=== PATIENT | male | born 1950 | race Caucasian/White ===

== ENCOUNTER 2018-05-24 15:40 | Inpatient (IN) ==
--- NOTE | 2018-05-24 18:08 | ED ---
HPI General Chief complaint: Urogenital-Male Stated complaint: Patient states urinary complaint Time Seen by Provider: 05/24/18 17:48 Source: patient Mode of arrival: ambulatory Limitations: no limitations History of Present Illness HPI Narrative: 68-year-old male with history of CAD status post CABG, hypertension, TIA presents to the emergency department with his daughter with concerns of a Dinh catheter bag but has not been draining today. His daughter states that there has been pus in the area of the catheter as well associated with pain. Daughter states that patient is due to go to the [facility] to see a physician but does not know why. They state that Was placed 3 months ago but does not know why. A quick review of the notes show the patient has an enlarged prostate and this was placed by Dr. Hoyos, urologist. Patient reports pain in his lower pelvic region that has worsened throughout the day. He denies fever, chills, chest pain, shortness of breath. Patient had a bowel movement today which was normal for him. MD Complaint: Reports penile discharge Duration: constant Location: Reports penis Severity: moderate Relieving factors: none Exacerbating factors: palpation and movement Reports discharge and urinary retention Related Data Home Medications Medication Instructions Recorded Confirmed aspirin 81 mg PO DAILY 05/24/18 05/24/18 atorvastatin 20 mg PO DAILY 05/24/18 05/24/18 furosemide 20 mg PO DAILY 05/24/18 05/24/18 lisinopril 10 mg PO DAILY 05/24/18 05/24/18 Allergies Allergy/AdvReac Type Severity Reaction Status Date / Time No Known Allergies Allergy Verified 05/24/18 16:21 Review of Systems ROS: all other systems reviewed are negative PMFSH History History Provided By: Patient and Family Member Family History Family History Other Family history normal Social History Social History Substance History: No History of Abuse Second Hand Smoke Exposure: Yes Smoking Status: Former smoker Tobacco Type: Cigarettes How Often Do You Have a Drink Containing Alcohol: Never Recent Travel in [place] within the Last 8 Weeks: No Recent Out of Country Travel within the Last 8 Weeks: No Exam Narrative Exam Narrative: GENERAL: Well-developed, well-nourished in no apparent distress , very hard of hearing SKIN: Focused skin assessment warm/dry. HEAD: Atraumatic. Normocephalic. EYES: Pupils equal and round. No scleral icterus. No injection or drainage. ENT: No nasal bleeding or discharge. Mucous membranes pink and moist. NECK: Trachea midline. No JVD. CARDIOVASCULAR: Regular rate and rhythm. No murmur appreciated. RESPIRATORY: No accessory muscle use. Clear to auscultation. Breath sounds equal bilaterally. GASTROINTESTINAL: Abdomen soft, non-tender, nondistended. Hepatic and splenic margins not palpable. enlargement of likely bladder with TTP to the umbilical region. No CVAT MUSCULOSKELETAL: No obvious deformities. No clubbing. No cyanosis. No edema. NEUROLOGICAL: Awake and alert. No obvious cranial nerve deficits. Motor grossly within normal limits. Normal speech. PSYCHIATRIC: Appropriate mood and affect; insight and judgment normal. Course Initial Documented Vital Signs Temperature 97.7 F 05/24/18 16:14 Pulse Rate 60 05/24/18 16:14 Respiratory Rate 15 05/24/18 16:14 Blood Pressure 173/76 H 05/24/18 16:14 Pulse Oximetry 94 L 05/24/18 16:14 Last Documented Vital Signs Temperature 97.5 F L 05/25/18 08:00 Pulse Rate 69 05/25/18 08:00 Respiratory Rate 18 05/25/18 08:00 Blood Pressure 137/58 L 05/25/18 08:00 Pulse Oximetry 96 05/25/18 08:00 Discharge Plan Discharge Disposition Patient Disposition: 30 Still Patient Discharge Condition Condition: Stable Discharge Details Diagnosis: Acute UTI, Acute retention of urine, Sepsis Physicians Team ED Provider: Brant Lopez ED Midlevel Provider: Shannon Luo Primary Care Provider: NON STAFF,PROVIDER Attending Provider: Kasey Lemus Status ED Status: Left Department Discharge Information Discharge Date/Time: 05/25/18 08:00 Medical Decision Making [facility] Narrative Medical decision making narrative: 68y male with a history of BPH presents to the ED for concerns of lack of draining of his dinh bag. Says this was placed 3 months ago and is due to follow up with a specialist at [facility]. He was previous seen by Dr. Hoyos who placed this catheter. Vital signs are stable. Physical exam findings demonstrate mild TTP to lower abdomen/pelvis with no drainage of urine in dinh bag. Labs are concerning for developing sepsis. Lactic 3.9, WBC 17.9, BUN/Cr 33/1.58. Attempted to flush the catheter but unsuccessful. Required a coude to flush, irrigate, and obtain a urine sample. I was notified that the urine was malodorous and cloudy, concerning for an infection. Initiated cefepime 2g IV. IVF with held initially as it took an extended period of time to drain the dinh bag. Ordered 1L NS IVF. Previous records are from 2014 and no labs were available for review to determine chronicity of kidney function. Pt to be admitted for urosepsis. Medical Screen Exam Complete: Yes Emergency Medical Condition: Yes Differential Diagnosis Differential Diagnosis: sepsis, urosepsis, urinary obstruction Lab Data Result diagrams: 05/24/18 18:10 05/24/18 18:10 Lab Results 05/24/18 05/24/18 05/24/18 Range/Units 00:00 00:00 18:10 WBC 17.9 H (4.0-11.0) th/mm3 RBC 4.86 (4.50-5.90) mil/mm3 Hgb 15.8 (13.0-17.0) gm/dL Hct 45.7 (39.0-51.0) % MCV 94.0 (80.0-100.0) fL MCH 32.6 (27.0-34.0) pg MCHC 34.6 (32.0-36.0) % RDW 14.5 (11.6-17.2) % Plt Count 253 (150-450) th/mm3 MPV 9.3 (7.0-11.0) fL Neut % (Auto) 89.3 H (16.0-70.0) % Lymph % (Auto) 3.3 L (9.0-44.0) % Stewart % (Auto) 7.3 (0.0-8.0) % Eos % (Auto) 0.0 (0.0-4.0) % Baso % (Auto) 0.1 (0.0-2.0) % Neut # (Auto) 16.0 H (1.8-7.7) th/mm3 Lymph # (Auto) 0.6 L (1.0-4.8) th/mm3 Stewart # (Auto) 1.3 H (0.0-0.9) th/mm3 Eos # (Auto) 0.0 (0.0-0.4) th/mm3 Baso # (Auto) 0.0 (0.0-0.2) th/mm3 WBC Differential . Differential Comment Auto diff final PT (9.8-11.6) sec INR Ratio APTT (24.3-30.1) sec Sodium (136-145) meq/L Potassium (3.5-5.1) meq/L Chloride (98-107) meq/L Carbon Dioxide (21.0-32.0) meq/L Anion Gap (5-15) meq/L BUN (7-18) mg/dL Creatinine (0.60-1.30) mg/dL Estimated GFR (>89) mL/min Random Glucose (74-106) mg/dL Lactic Acid (0.4-2.0) mmol/L Calcium (8.5-10.1) mg/dL Total Bilirubin (0.2-1.0) mg/dL AST (15-37) U/L ALT (12-78) U/L Alkaline Phosphatase (45-117) U/L Total Creatine Kinase 311 H (39-308) U/L CK-MB (CK-2) 4.5 H (0.5-3.6) ng/mL CK-MB (CK-2) % 1.4 (0.0-4.0) % Troponin I 0.37 H (0.02-0.05) ng/mL B-Natriuretic Peptide 2358 H (0-100) pg/mL Total Protein (6.4-8.2) g/dL Albumin (3.4-5.0) g/dL Urine Color (Yellw/Straw) Urine Clarity (Clear) Urine pH (5.0-8.5) Ur Specific Riley (1.002-1.035) Urine Protein (Neg-Trace) mg/dL Urine Glucose (UA) (Negative) mg/dL Urine Ketones (Negative) mg/dL Urine Occult Blood (Negative) Urine Nitrate (Negative) Urine Bilirubin (Negative) Urine Urobilinogen (Less than 2) mg/dL Ur Leukocyte Esterase (Negative) Urine RBC (0-3) /hpf Urine WBC (0-5) /hpf Urine WBC Clumps (None) Ur Squamous Epith Cells (0-5) /hpf Amorphous Sediment (None) /hpf Urine Bacteria (None) /hpf Hyaline Casts (0-3) /lpf Urine Mucus (Occasional) /lpf Micro UA Comment Ur Microscopic Review Urine Culture Comments 1005/24/18 05/24/18 Range/Units 18:10 18:10 18:10 WBC (4.0-11.0) th/mm3 RBC (4.50-5.90) mil/mm3 Hgb (13.0-17.0) gm/dL Hct (39.0-51.0) % MCV (80.0-100.0) fL MCH (27.0-34.0) pg MCHC (32.0-36.0) % RDW (11.6-17.2) % Plt Count (150-450) th/mm3 MPV (7.0-11.0) fL Neut % (Auto) (16.0-70.0) % Lymph % (Auto) (9.0-44.0) % Stewart % (Auto) (0.0-8.0) % Eos % (Auto) (0.0-4.0) % Baso % (Auto) (0.0-2.0) % Neut # (Auto) (1.8-7.7) th/mm3 Lymph # (Auto) (1.0-4.8) th/mm3 Stewart # (Auto) (0.0-0.9) th/mm3 Eos # (Auto) (0.0-0.4) th/mm3 Baso # (Auto) (0.0-0.2) th/mm3 WBC Differential Differential Comment PT 11.6 (9.8-11.6) sec INR 1.1 Ratio APTT 25.6 (24.3-30.1) sec Sodium 136 (136-145) meq/L Potassium 4.4 (3.5-5.1) meq/L Chloride 103 (98-107) meq/L Carbon Dioxide 22.8 (21.0-32.0) meq/L Anion Gap 10 (5-15) meq/L BUN 33 H (7-18) mg/dL Creatinine 1.58 H (0.60-1.30) mg/dL Estimated GFR 44 L (>89) mL/min Random Glucose 123 H (74-106) mg/dL Lactic Acid 3.9 H (0.4-2.0) mmol/L Calcium 9.5 (8.5-10.1) mg/dL Total Bilirubin 1.0 (0.2-1.0) mg/dL AST 19 (15-37) U/L ALT 27 (12-78) U/L Alkaline Phosphatase 75 (45-117) U/L Total Creatine Kinase (39-308) U/L CK-MB (CK-2) (0.5-3.6) ng/mL CK-MB (CK-2) % (0.0-4.0) % Troponin I (0.02-0.05) ng/mL B-Natriuretic Peptide (0-100) pg/mL Total Protein 8.4 H (6.4-8.2) g/dL Albumin 3.9 (3.4-5.0) g/dL Urine Color (Yellw/Straw) Urine Clarity (Clear) Urine pH (5.0-8.5) Ur Specific Riley (1.002-1.035) Urine Protein (Neg-Trace) mg/dL Urine Glucose (UA) (Negative) mg/dL Urine Ketones (Negative) mg/dL Urine Occult Blood (Negative) Urine Nitrate (Negative) Urine Bilirubin (Negative) Urine Urobilinogen (Less than 2) mg/dL Ur Leukocyte Esterase (Negative) Urine RBC (0-3) /hpf Urine WBC (0-5) /hpf Urine WBC Clumps (None) Ur Squamous Epith Cells (0-5) /hpf Amorphous Sediment (None) /hpf Urine Bacteria (None) /hpf Hyaline Casts (0-3) /lpf Urine Mucus (Occasional) /lpf Micro UA Comment Ur Microscopic Review Urine Culture Comments 05/24/18 05/24/18 Range/Units 22:20 22:35 WBC (4.0-11.0) th/mm3 RBC (4.50-5.90) mil/mm3 Hgb (13.0-17.0) gm/dL Hct (39.0-51.0) % MCV (80.0-100.0) fL MCH (27.0-34.0) pg MCHC (32.0-36.0) % RDW (11.6-17.2) % Plt Count (150-450) th/mm3 MPV (7.0-11.0) fL Neut % (Auto) (16.0-70.0) % Lymph % (Auto) (9.0-44.0) % Stewart % (Auto) (0.0-8.0) % Eos % (Auto) (0.0-4.0) % Baso % (Auto) (0.0-2.0) % Neut # (Auto) (1.8-7.7) th/mm3 Lymph # (Auto) (1.0-4.8) th/mm3 Stewart # (Auto) (0.0-0.9) th/mm3 Eos # (Auto) (0.0-0.4) th/mm3 Baso # (Auto) (0.0-0.2) th/mm3 WBC Differential Differential Comment PT (9.8-11.6) sec INR Ratio APTT (24.3-30.1) sec Sodium (136-145) meq/L Potassium (3.5-5.1) meq/L Chloride (98-107) meq/L Carbon Dioxide (21.0-32.0) meq/L Anion Gap (5-15) meq/L BUN (7-18) mg/dL Creatinine (0.60-1.30) mg/dL Estimated GFR (>89) mL/min Random Glucose (74-106) mg/dL Lactic Acid 1.7 (0.4-2.0) mmol/L Calcium (8.5-10.1) mg/dL Total Bilirubin (0.2-1.0) mg/dL AST (15-37) U/L ALT (12-78) U/L Alkaline Phosphatase (45-117) U/L Total Creatine Kinase (39-308) U/L CK-MB (CK-2) (0.5-3.6) ng/mL CK-MB (CK-2) % (0.0-4.0) % Troponin I (0.02-0.05) ng/mL B-Natriuretic Peptide (0-100) pg/mL Total Protein (6.4-8.2) g/dL Albumin (3.4-5.0) g/dL Urine Color Diamante (Yellw/Straw) Urine Clarity Cloudy H (Clear) Urine pH 7.0 (5.0-8.5) Ur Specific Riley 1.011 (1.002-1.035) Urine Protein 100 H (Neg-Trace) mg/dL Urine Glucose (UA) Negative (Negative) mg/dL Urine Ketones Trace H (Negative) mg/dL Urine Occult Blood Moderate H (Negative) Urine Nitrate Negative (Negative) Urine Bilirubin Negative (Negative) Urine Urobilinogen Less than 2 (Less than 2) mg/dL Ur Leukocyte Esterase Moderate H (Negative) Urine RBC 115 H (0-3) /hpf Urine WBC 91 H (0-5) /hpf Urine WBC Clumps Rare H (None) Ur Squamous Epith Cells 1 (0-5) /hpf Amorphous Sediment Few H (None) /hpf Urine Bacteria Occasional H (None) /hpf Hyaline Casts 5 (0-3) /lpf Urine Mucus Few H (Occasional) /lpf Micro UA Comment Cath-culture ind Ur Microscopic Review Not Reportable Urine Culture Comments Cath-cult indicated Imaging Data Radiologist's impression: Chest X-Ray 05/24/18 22:40 CONCLUSION: Cardiomegaly. Prominent interstitium which may represent some pulmonary venous hypertension or mild edema. Patchy alveolar density representing consolidation or atelectasis at the right base. Abdomen/Bladder Ultrasound 05/25/18 00:00 CONCLUSION: 1. 2.1 cm left mid renal pole cyst. 2. Otherwise, unremarkable renal ultrasound examination. 3. Specifically, no sonographic evidence for obstructive uropathy. ECG Data EKG Prior to Arrival: No Attestation: I personally reviewed and interpreted this ECG as follows: Prior ECG tracings: available for review (2014 and 2004) Interpretation: atrial rhythm rate 73 with occassional Supraventricular and ventricular beats. This EKG appears changed since previous EKGs in 2014 and 2004. Pt does not report chest pain or SOB at this time.
[2018-05-24 18:28] LABS: Baso % (Auto) 0.1 % (0.0-2.0); Hematocrit 45.7 % (39.0-51.0); Hemoglobin 15.8 gm/dL (13.0-17.0); Lymph # (Auto) 0.6 th/mm3 (1.0-4.8); Lymph % (Auto) 3.3 % (9.0-44.0); Mean Corpuscular HGB Conc 34.6 % (32.0-36.0); Mean Corpuscular Hemoglobin 32.6 pg (27.0-34.0); Mean Platelet Volume 9.3 fL (7.0-11.0); Mono # (Auto) 1.3 th/mm3 (0.0-0.9); Mono % (Auto) 7.3 % (0.0-8.0); Neut % (Auto) 89.3 % (16.0-70.0); Platelet Count 253 th/mm3 (150-450); Red Blood Count 4.86 mil/mm3 (4.50-5.90); Red Cell Distribution Width 14.5 % (11.6-17.2); White Blood Count 17.9 th/mm3 (4.0-11.0)
[2018-05-24 18:41] LABS: Activated Partial Thrombo Time 25.6 sec (24.3-30.1); INR 1.1 Ratio; Prothrombin Time 11.6 sec (9.8-11.6)
[2018-05-24 18:52] LABS: Alanine Aminotransferase 27 U/L (12-78); Albumin 3.9 g/dL (3.4-5.0); Anion Gap 10 meq/L (5-15); Aspartate Aminotransferase 19 U/L (15-37); Blood Urea Nitrogen 33 mg/dL (7-18); Calcium 9.5 mg/dL (8.5-10.1); Carbon Dioxide 22.8 meq/L (21.0-32.0); Chloride 103 meq/L (98-107); Glomerular Filtration Rate 44 mL/min (>89); Glucose,Random 123 mg/dL (74-106); Potassium 4.4 meq/L (3.5-5.1); Sodium 136 meq/L (136-145)
[2018-05-24 18:55] LABS: Alkaline Phosphatase 75 U/L (45-117); Total Protein 8.4 g/dL (6.4-8.2)
[2018-05-24] MEDS ORDERED: Sod Chloride 0.9% Inj 1,000 ML IV.SIG SCH (19:45)
[2018-05-24] MEDS ORDERED: Morphine Sulfate Inj 2 MG/ML Vial IV.PUSH ONE (21:38)
[2018-05-24 23:22] LABS: Amorphous Sediment,Urine Few /hpf; Bacteria,Urine Occasional /hpf; Bilirubin,Urine Negative (Negative); Clarity,Urine Cloudy (Clear); Color,Urine Amber (Yellw/Straw); Glucose,Urine (UA) Negative (Negative); Hyaline Casts,Urine 5 /lpf (0-3); Leukocyte Esterase,Urine Moderate (Negative); Mucus,Urine Few /lpf (Occasional); Nitrite,Urine Negative (Negative); Specific Gravity,Urine 1.011 (1.002-1.035); Squamous Epithelial Cell,Urine 1 /hpf (0-5)
--- NOTE | 2018-05-24 23:25 | XR ---
EXAM DATE: 05/24/2018 10:40 PM EDT AGE/SEX: 68 years / Male INDICATIONS: Short of breath. CLINICAL DATA: This is the patient's initial encounter. Patient reports that signs and symptoms have been present for 1 day and indicates a pain score of 0/10. MEDICAL/SURGICAL HISTORY: Non-responsive. CABG. COMPARISON: No prior exams available for comparison. FINDINGS: The heart size is enlarged. The patient is status post sternotomy. There is mild prominence of inters titium. There are some patchy density at the right base. The costophrenic angles are clear. CONCLUSION: Cardiomegaly. Prominent interstitium which may represent some pulmonary venous hypertension or mild edema. Patchy alveolar density representing consolidation or atelectasis at the right base. Electronically signed by: Mark Waite MD 05/24/2018 11:24 PM EDT
[2018-05-24] MEDS ORDERED: Azithromycin Inj 500 MG in Sodium Chlor 0.9% Inj 250 ML IV.SIG ONE (23:33)
[2018-05-25] MEDS ORDERED: Bisacodyl 10 MG Supp RECTAL PRN (01:06)
[2018-05-25] MEDS ORDERED: Acetaminophen 325 MG Tablet PO PRN (01:06)
--- NOTE | 2018-05-25 01:20 | P.HP ---
History of Present Illness Service: [facility] Primary Care Physician: PROVIDER NON STAFF History of Present Illness: 68-year-old male with a past medical history significant for coronary artery disease, hypertension, hyperlipidemia, CHF and urinary retention presents to the emergency department for evaluation of a Jimenez catheter. The patient has an indwelling Jimenez catheter that was put in 3 months ago secondary to urinary retention. The patient was evaluated by his home health care nurse today who was concerned that the catheter might be clogged. He came to the emergency department for further evaluation. The patient and his daughter are poor historians. He follows with a urologist in [facility], Dr. Anderson, who is supposed to do a procedure to alleviate obstruction at some time in the future. The patient has been living in [facility] with his daughter as he is unable to care for himself. He denies any recent fever/chills. No abdominal pain. On arrival to the emergency department. The Jimenez catheter was exchanged in the emergency department with 1100 cc of urine out. The patient denies any chest pain or shortness of breath. No abdominal pain. No nausea/vomiting/diarrhea. Chronic cough which is unchanged. No lateralizing signs/symptoms. Inpatient Certification: I certify that the inpatient services were ordered in accordance with Medicare regulations governing the order. This includes certification that hospital inpatient services are reasonable and necessary and in the case of services not specified as inpatient-only under 42 CFR 419.22(n), that they are appropriately provided as inpatient services in accordance to with the 2-midnight benchmark under 43 CFR 412.3(e) Estimated Total Length of Stay (Days): 3 Plans for Post Hospital Care: Not yet determined Review of Systems All other systems reviewed negative except as stated in HPI PMFSH - History History Provided By: Patient, Family Member - Medical History Medical History: Medical History (Last Updated 05/25/18 @ 01:14 by Lakisha Isbell MD) Congestive heart failure Coronary artery disease Femoral-popliteal artery atherosclerosis Hyperlipidemia Hypertension Myocardial infarct - Surgical History Surgical History: Surgical History (Last Reviewed 05/25/18 @ 01:14 by Lakisha Isbell MD) H/O hernia repair S/P CABG x 4 - Family History Family History: Family History (Last Updated 05/25/18 @ 01:14 by Lakisha Isbell MD) Other Family history normal - Tobacco History Second Hand Smoke Exposure: Yes Tobacco Use In Past 30 Days: Yes Smoking Status: Former smoker Tobacco Type: Cigarettes - Alcohol History How Often Do You Have a Drink Containing Alcohol: Never - Substance Use History Substance History: No History of Abuse - Travel History Recent Travel in the [place] Within the Last 8 Weeks: No Recent Travel Out of the Country Within the Last 8 Weeks: No - Immunization History Tetanus Immunization: <5 Years Medications and Allergies Active Medications: Active Medications Sodium Chloride (Ns Inj) 1,000 mls @ 0 mls/hr IV.SIG BOLUS ЕЛЕНА Last Infusion: 05/25/18 00:12 Dose: Infused Allergies Allergy/AdvReac Type Severity Reaction Status Date / Time No Known Allergies Allergy Verified 05/24/18 16:21 Home Medications Medication Instructions Recorded Confirmed Type aspirin 81 mg PO DAILY 05/24/18 05/24/18 History atorvastatin 20 mg PO DAILY 05/24/18 05/24/18 History furosemide 20 mg PO DAILY 05/24/18 05/24/18 History lisinopril 10 mg PO DAILY 05/24/18 05/24/18 History Exam Vital signs: Vital Signs 05/24/18 16:14 05/24/18 20:05 05/24/18 23:15 Temperature 97.7 F Pulse Rate 60 68 Respiratory Rate 15 20 20 Blood Pressure 173/76 H 142/69 H Pulse Oximetry 94 L 96 05/25/18 00:00 Temperature Pulse Rate 71 Respiratory Rate 20 Blood Pressure 121/71 Pulse Oximetry 95 Intake & Output 05/24/18 05/24/18 05/25/18 06:59 18:59 06:59 Intake Total 1100 / 1100 Balance 1100 / 1100 Weight 104.326 kg Intake: IV 1100 / 1100 Maxipime Inj 2,000 MG In NS Inj 100 / 100 100 ML @ 200 mls/hr IV.SIG ONCE ONE Rx#:[id number] NS Inj 1,000 ML @ Wide Open IV. 1000 / 1000 SIG BOLUS ЕЛЕНА Rx#:[id number] Narrative: Gen.: No acute distress Head: Normocephalic. Atraumatic. EENT: Pupils equal round and reactive to light. Nose without drainage. Airway intact. Throat without injection. Cardiovascular: Regular rate and rhythm. No murmurs, rubs or gallops. Respiratory: Lungs clear to auscultation bilaterally. No wheezes or rhonchi. Abdomen: Soft, nontender, nondistended. No peritoneal signs. Musculoskeletal: No gross deformities. No edema. Skin: No obvious rashes or erythema. Neuro: Sensory and motor grossly intact. Cranial nerves II through XII grossly intact. Results - Labs CBC & Chem 7: 05/24/18 18:10 05/24/18 18:10 Labs: Laboratory Results - last 24 hr 05/24/18 05/24/18 05/24/18 18:10 18:10 18:10 WBC 17.9 H RBC 4.86 Hgb 15.8 Hct 45.7 MCV 94.0 MCH 32.6 MCHC 34.6 RDW 14.5 Plt Count 253 MPV 9.3 Neut % (Auto) 89.3 H Lymph % (Auto) 3.3 L [place] % (Auto) 7.3 Eos % (Auto) 0.0 Baso % (Auto) 0.1 Neut # (Auto) 16.0 H Lymph # (Auto) 0.6 L [place] # (Auto) 1.3 H Eos # (Auto) 0.0 Baso # (Auto) 0.0 WBC Differential . Differential Comment Auto diff final PT 11.6 INR 1.1 APTT 25.6 Sodium 136 Potassium 4.4 Chloride 103 Carbon Dioxide 22.8 Anion Gap 10 BUN 33 H Creatinine 1.58 H Estimated GFR 44 L Random Glucose 123 H Lactic Acid Calcium 9.5 Total Bilirubin 1.0 AST 19 ALT 27 Alkaline Phosphatase 75 Total Protein 8.4 H Albumin 3.9 Urine Color Urine Clarity Urine pH Ur Specific [place] Urine Protein Urine Glucose (UA) Urine Ketones Urine Occult Blood Urine Nitrate Urine Bilirubin Urine Urobilinogen Ur Leukocyte Esterase Urine RBC Urine WBC Urine WBC Clumps Ur Squamous Epith Cells Amorphous Sediment Urine Bacteria Hyaline Casts Urine Mucus Micro UA Comment Ur Microscopic Review Urine Culture Comments 05/24/18 05/24/18 05/24/18 18:10 22:20 22:35 WBC RBC Hgb Hct MCV MCH MCHC RDW Plt Count MPV Neut % (Auto) Lymph % (Auto) [place] % (Auto) Eos % (Auto) Baso % (Auto) Neut # (Auto) Lymph # (Auto) [place] # (Auto) Eos # (Auto) Baso # (Auto) WBC Differential Differential Comment PT INR APTT Sodium Potassium Chloride Carbon Dioxide Anion Gap BUN Creatinine Estimated GFR Random Glucose Lactic Acid 3.9 H 1.7 Calcium Total Bilirubin AST ALT Alkaline Phosphatase Total Protein Albumin Urine Color Diamante Urine Clarity Cloudy H Urine pH 7.0 Ur Specific [place] 1.011 Urine Protein 100 H Urine Glucose (UA) Negative Urine Ketones Trace H Urine Occult Blood Moderate H Urine Nitrate Negative Urine Bilirubin Negative Urine Urobilinogen Less than 2 Ur Leukocyte Esterase Moderate H Urine RBC 115 H Urine WBC 91 H Urine WBC Clumps Rare H Ur Squamous Epith Cells 1 Amorphous Sediment Few H Urine Bacteria Occasional H Hyaline Casts 5 Urine Mucus Few H Micro UA Comment Cath-culture ind Ur Microscopic Review Not Reportable Urine Culture Comments Cath-cult indicated - Imaging Impressions Chest X-Ray 05/24/18 22:40 CONCLUSION: Cardiomegaly. Prominent interstitium which may represent some pulmonary venous hypertension or mild edema. Patchy alveolar density representing consolidation or atelectasis at the right base. Caprini VTE Risk Assessment Caprini VTE Risk Assessment: Moderate/High Risk (score >= 2) Caprini Risk Assessment Model: Point Value = 1 Point Value = 2 Point Value = 3 Point Value = 5 Age 41-60 Minor surgery BMI > 25 kg/m2 Swollen legs Varicose veins or History of unexplained or recurrent spontaneous Oral contraceptives or hormone replacement Sepsis (< 1 month) Serious lung disease, including pneumonia (< 1 month) Abnormal pulmonary function Acute myocardial infarction Congestive heart failure (< 1 month) History of inflammatory bowel disease Medical patient at bed rest Age 61-74 Arthroscopic surgery Major open surgery (> 45 min) Laparoscopic surgery (> 45 min) Malignancy Confined to bed (> 72 hours) Immobilizing plaster cast Central venous access Age >= 75 History of VTE Family history of VTE Factor V Leiden Prothrombin [id number] Lupus anticoagulant Anticardiolipin antibodies Elevated serum homocysteine Heparin-induced thrombocytopenia Other congenital or acquired thrombophilia Stroke (< 1 month) Elective arthroplasty Hip, pelvis, or leg fracture Acute spinal cord injury (< 1 month) Prophylaxis Regimen: Total Risk Factor Score Risk Level Prophylaxis Regimen 0-1 Low Early ambulation 2 Moderate Order ONE of the following: *Sequential Compression Device (SCD) *Heparin 5000 units SQ BID 3-4 Higher Order ONE of the following medications: *Heparin 5000 units SQ TID *Enoxaparin/Lovenox 40 mg SQ daily (WT < 150 kg, CrCl > 30 mL/min) *Enoxaparin/Lovenox 30 mg SQ daily (WT < 150 kg, CrCl > 10-29 mL/min) *Enoxaparin/Lovenox 30 mg SQ BID (WT < 150 kg, CrCl > 30 mL/min) AND/OR *Sequential Compression Device (SCD) 5 or more Highest Order ONE of the following medications: *Heparin 5000 units SQ TID (Preferred with Epidurals) *Enoxaparin/Lovenox 40 mg SQ daily (WT < 150 kg, CrCl > 30 mL/min) *Enoxaparin/Lovenox 30 mg SQ daily (WT < 150 kg, CrCl > 10-29 mL/min) *Enoxaparin/Lovenox 30 mg SQ BID (WT < 150 kg, CrCl > 30 mL/min) AND *Sequential Compression Device (SCD) Assessment and Plan - Plan Assessment/plan: 1. Urosepsis UA consistent with urinary tract infection Leukocytosis and elevated lactic acid Likely secondary to indwelling Jimenez catheter Blood cultures pending Urine cultures pending Cefepime IV fluid hydration 2. Pneumonia Chest x-ray significant for possible consolidation at the right base Cefepime/azithromycin 3. AK I Creatinine 1.58, no baseline for comparison Renal ultrasound pending given patient's urinary retention and possible history of obstruction 4. CHF/CAD/hypertension/hyperlipidemia Continue home medications FEN Heart healthy diet NS at 70 cc/hour Electrolytes: Monitor and replete as needed Heparin
[2018-05-25 01:40] LABS: Troponin I 0.37 ng/mL (0.02-0.05)
[2018-05-25 01:53] LABS: CKMB Percent 1.4 % (0.0-4.0); Creatine Kinase MB 4.5 ng/mL (0.5-3.6)
[2018-05-25] MEDS: Sod Chloride 0.9% Inj 1,000 ML IV.CONT SCH ×2 (02:16→19:07)
--- NOTE | 2018-05-25 06:50 | ECG ---
Date Performed: 05/24/2018 Time Performed: 18:00:11 PTAGE: 68 years EKG: Probable sinus bradycardia with premature atrial contractions RIGHT BUNDLE BRANCH BLOCK LEF T ANTERIOR FASCICULAR BLOCK LEFT VENTRICULAR HYPERTROPHY AND ST-T CHANGE ANTEROSEPTAL MYOCARDIAL INFA RCTION ABNORMAL ECG Compared to prior electrocardiogram, Right bundle branch block and PACs are now p resent. PREVIOUS TRACING : 06/15/2015 04.36 DOCTOR: True Silva Interpretating Date/Time 05/25/2018 06:49:10
[2018-05-25] MEDS: Heparin - SQ 10,000 UNITS/ML Vial SQ SCH ×3 (07:46→22:19)
[2018-05-25] MEDS ORDERED: Furosemide 20 MG Tablet PO SCH (09:00)
--- NOTE | 2018-05-25 09:43 | US ---
EXAM DATE: 05/25/2018 12:00 AM EDT AGE/SEX: 68 years / Male INDICATIONS: Abnormal labs. CLINICAL DATA: This is the patient's initial encounter. Patient reports that signs and symptoms have been present for 1 day and indicates a pain score of 0/10. MEDICAL/SURGICAL HISTORY: Congestive heart failure. Hypertension. Myocardial infarction. Hyp erlipidemia. CAD. Hernia. CABG. Hernia repair. COMPARISON: No prior exams available for comparison. MEASUREMENTS: Right Kidney:__12.6 x 6.3 x 5.6 cm Left Kidney:__10.6 x 5.8 x 5.7 cm FINDINGS: Right Kidney: Normal echotexture and cortical thickness. No mass or hydronephrosis. Left Kidney: Normal echotexture and cortical thickness. No hydronephrosis. Anechoic avascular cyst in the midpole measuring 1.8 x 2.1 x 2.0 cm. Bladder: Jimenez catheter is present. Bladder decompressed. Other: None. CONCLUSION: 1. 2.1 cm left mid renal pole cyst. 2. Otherwise, unremarkable renal ultrasound examination. 3. Specifically, no sonographic evidence for obstructive uropathy. Electronically signed by: Robbin Ayala MD 05/25/2018 9:41 AM EDT
--- NOTE | 2018-05-25 15:18 | P.CONURO ---
History of Present Illness Service: Urology Consult date: 05/25/18 Requesting Physician: Kasey Lemus Reason for Consult: UTI, chronic dinh cath Primary Care Provider: PROVIDER NON STAFF Chief Complaint: Dinh issues/clogged, UTI History of Present Illness: 68-year-old male with a past medical history significant for coronary artery disease, hypertension, hyperlipidemia, CHF and urinary retention presents to the emergency department for evaluation of a Dinh catheter. The patient has an indwelling Dinh catheter that was put in 3 months ago secondary to urinary retention. The patient was evaluated by his home health care nurse today who was concerned that the catheter might be clogged. He came to the emergency department for further evaluation. The patient is a poor historian. He follows with a urologist Dr. Anderson, who is supposed to do a procedure to alleviate obstruction at some time in the future. He denies any recent fever/ chills. No abdominal pain. The Dinh catheter was exchanged in the emergency department with 1100 cc of urine out. The patient denies any chest pain or shortness of breath. No abdominal pain. No nausea/vomiting/diarrhea. Chronic cough which is unchanged. No lateralizing signs/symptoms. Urology consulted He has elevated white count. Slightly elevated Cr possibly due to retention and dehydration. He is on IV antbx, UC was sent. no f/c/n/v, no hematuria Review of Systems All other systems reviewed negative except as stated in HPI PMFSH - History History Provided By: Patient, Family Member - Medical History Medical History: Medical History (Last Reviewed 05/25/18 @ 08:42 by Lamotn Madrigal) Congestive heart failure Coronary artery disease Femoral-popliteal artery atherosclerosis Hyperlipidemia Hypertension Myocardial infarct - Surgical History Surgical History: Surgical History (Last Reviewed 05/25/18 @ 08:42 by Lamont Madrigal) H/O hernia repair S/P CABG x 4 - Family History Family History: Family History (Last Updated 05/25/18 @ 01:14 by Lakisha Isbell MD) Other Family history normal - Tobacco History Second Hand Smoke Exposure: Yes Tobacco Use In Past 30 Days: Yes Smoking Status: Former smoker Tobacco Type: Cigarettes - Alcohol History How Often Do You Have a Drink Containing Alcohol: Never - Substance Use History Substance History: No History of Abuse - Travel History Recent Travel in the [facility] Within the Last 8 Weeks: No Recent Travel Out of the Country Within the Last 8 Weeks: No - Immunization History Tetanus Immunization: <5 Years Medications and Allergies Active Medications: Active Medications Acetaminophen (Tylenol) 650 mg PO Q4H PRN PRN Reason: Temp > 100.4 Al Hydroxide/Mg Hydroxide (Milk Of Magnesia Liq) 30 ml PO Q12H PRN PRN Reason: Mild Constipation Aspirin (Aspirin Chew) 81 mg PO DAILY [facility] Atorvastatin Calcium (Lipitor) 20 mg PO DAILY [facility] Bisacodyl (Dulcolax Supp) 10 mg RECTAL DAILY PRN PRN Reason: SEVERE CONSITIPATION Furosemide (Lasix Inj) 40 mg IV.PUSH BID@0900,1800 [facility] Heparin Sodium (Porcine) (Heparin Inj) 5,000 units SQ Q8H [facility] Last Admin: 05/25/18 13:55 Dose: 5,000 units Azithromycin 500 mg/ Sodium (Chloride) 250 mls @ 250 mls/hr IV.SIG Q24H ЕЛЕНА Cefepime HCl 2,000 mg/ Sodium (Chloride) 100 mls @ 200 mls/hr IV.SIG Q12H [facility] Sodium Chloride (Ns Inj) 1,000 mls @ 70 mls/hr IV.CONT .[id number] [facility] Last Admin: 05/25/18 02:16 Dose: 70 mls/hr Lactulose (Lactulose Liq) 30 ml PO DAILY PRN PRN Reason: SEVERE CONSITIPATION Lisinopril (Prinivil) 10 mg PO DAILY [facility] Ondansetron HCl (Zofran Inj) 4 mg IV.PUSH Q6H PRN PRN Reason: NAUSEA OR VOMITING Senna/Docusate Sodium (Nadine-Colace) 1 tab PO BID [facility] Sennosides (Senokot) 17.2 mg PO Q12H PRN PRN Reason: Moderate Constipation Allergies Allergy/AdvReac Type Severity Reaction Status Date / Time No Known Allergies Allergy Verified 05/24/18 16:21 Home Medications Medication Instructions Recorded Confirmed Type aspirin 81 mg PO DAILY 05/24/18 05/24/18 History atorvastatin 20 mg PO DAILY 05/24/18 05/24/18 History furosemide 20 mg PO DAILY 05/24/18 05/24/18 History lisinopril 10 mg PO DAILY 05/24/18 05/24/18 History Physical Exam Vital Signs - 24 hr 05/24/18 16:14 05/24/18 20:05 05/24/18 23:15 Temperature 97.7 F Pulse Rate 60 68 Respiratory Rate 15 20 20 Blood Pressure 173/76 H 142/69 H Pulse Oximetry 94 L 96 05/25/18 00:00 05/25/18 02:03 05/25/18 08:00 Temperature 97.5 F L Pulse Rate 71 78 69 Respiratory Rate 20 18 18 Blood Pressure 121/71 108/68 137/58 L Pulse Oximetry 95 96 96 05/25/18 12:00 Temperature 97.3 F L Pulse Rate 56 L Respiratory Rate 18 Blood Pressure 122/54 L Pulse Oximetry 98 Physical Exam: NAD RRR Clear lungs ABD soft NT Pt has a urethral opening at the midshaft. its splitted in half below glans. Its difficult to say if he has it due to erosion from chronic dinh, meatal / urethral stricture, hypospadia or other reasons Dinh is in place No CVAT Laboratory Results - last 24 hr 05/24/18 05/24/18 05/24/18 00:00 00:00 18:10 WBC 17.9 H RBC 4.86 Hgb 15.8 Hct 45.7 MCV 94.0 MCH 32.6 MCHC 34.6 RDW 14.5 Plt Count 253 MPV 9.3 Neut % (Auto) 89.3 H Lymph % (Auto) 3.3 L Meeker % (Auto) 7.3 Eos % (Auto) 0.0 Baso % (Auto) 0.1 Neut # (Auto) 16.0 H Lymph # (Auto) 0.6 L Meeker # (Auto) 1.3 H Eos # (Auto) 0.0 Baso # (Auto) 0.0 WBC Differential . Differential Comment Auto diff final PT INR APTT Sodium Potassium Chloride Carbon Dioxide Anion Gap BUN Creatinine Estimated GFR Random Glucose Lactic Acid Calcium Total Bilirubin AST ALT Alkaline Phosphatase Total Creatine Kinase 311 H CK-MB (CK-2) 4.5 H CK-MB (CK-2) % 1.4 Troponin I 0.37 H B-Natriuretic Peptide 2358 H Total Protein Albumin Urine Color Urine Clarity Urine pH Ur Specific Caldwell Urine Protein Urine Glucose (UA) Urine Ketones Urine Occult Blood Urine Nitrate Urine Bilirubin Urine Urobilinogen Ur Leukocyte Esterase Urine RBC Urine WBC Urine WBC Clumps Ur Squamous Epith Cells Amorphous Sediment Urine Bacteria Hyaline Casts Urine Mucus Micro UA Comment Ur Microscopic Review Urine Culture Comments 05/24/18 05/24/18 05/24/18 18:10 18:10 18:10 WBC RBC Hgb Hct MCV MCH MCHC RDW Plt Count MPV Neut % (Auto) Lymph % (Auto) Meeker % (Auto) Eos % (Auto) Baso % (Auto) Neut # (Auto) Lymph # (Auto) Meeker # (Auto) Eos # (Auto) Baso # (Auto) WBC Differential Differential Comment PT 11.6 INR 1.1 APTT 25.6 Sodium 136 Potassium 4.4 Chloride 103 Carbon Dioxide 22.8 Anion Gap 10 BUN 33 H Creatinine 1.58 H Estimated GFR 44 L Random Glucose 123 H Lactic Acid 3.9 H Calcium 9.5 Total Bilirubin 1.0 AST 19 ALT 27 Alkaline Phosphatase 75 Total Creatine Kinase CK-MB (CK-2) CK-MB (CK-2) % Troponin I B-Natriuretic Peptide Total Protein 8.4 H Albumin 3.9 Urine Color Urine Clarity Urine pH Ur Specific Caldwell Urine Protein Urine Glucose (UA) Urine Ketones Urine Occult Blood Urine Nitrate Urine Bilirubin Urine Urobilinogen Ur Leukocyte Esterase Urine RBC Urine WBC Urine WBC Clumps Ur Squamous Epith Cells Amorphous Sediment Urine Bacteria Hyaline Casts Urine Mucus Micro UA Comment Ur Microscopic Review Urine Culture Comments 05/24/18 05/24/18 05/25/18 22:20 22:35 12:20 WBC RBC Hgb Hct MCV MCH MCHC RDW Plt Count MPV Neut % (Auto) Lymph % (Auto) Meeker % (Auto) Eos % (Auto) Baso % (Auto) Neut # (Auto) Lymph # (Auto) Meeker # (Auto) Eos # (Auto) Baso # (Auto) WBC Differential Differential Comment PT INR APTT Sodium Potassium Chloride Carbon Dioxide Anion Gap BUN Creatinine Estimated GFR Random Glucose Lactic Acid 1.7 Calcium Total Bilirubin AST ALT Alkaline Phosphatase Total Creatine Kinase CK-MB (CK-2) CK-MB (CK-2) % Troponin I 0.29 H B-Natriuretic Peptide Total Protein Albumin Urine Color Diamante Urine Clarity Cloudy H Urine pH 7.0 Ur Specific Caldwell 1.011 Urine Protein 100 H Urine Glucose (UA) Negative Urine Ketones Trace H Urine Occult Blood Moderate H Urine Nitrate Negative Urine Bilirubin Negative Urine Urobilinogen Less than 2 Ur Leukocyte Esterase Moderate H Urine RBC 115 H Urine WBC 91 H Urine WBC Clumps Rare H Ur Squamous Epith Cells 1 Amorphous Sediment Few H Urine Bacteria Occasional H Hyaline Casts 5 Urine Mucus Few H Micro UA Comment Cath-culture ind Ur Microscopic Review Not Reportable Urine Culture Comments Cath-cult indicated Microbiology 05/24/18 18:15 Aerobic Blood Culture - Preliminary Blood - Peripheral No growth in 1 day Anaerobic Blood Culture - Preliminary No growth in 1 day 05/24/18 18:10 Aerobic Blood Culture - Preliminary Blood - Peripheral No growth in 1 day Anaerobic Blood Culture - Preliminary No growth in 1 day Result Diagrams: 05/24/18 18:10 05/24/18 18:10 Imaging: ITS Impressions Chest X-Ray 05/24/18 22:40 CONCLUSION: Cardiomegaly. Prominent interstitium which may represent some pulmonary venous hypertension or mild edema. Patchy alveolar density representing consolidation or atelectasis at the right base. Abdomen/Bladder Ultrasound 05/25/18 00:00 CONCLUSION: 1. 2.1 cm left mid renal pole cyst. 2. Otherwise, unremarkable renal ultrasound examination. 3. Specifically, no sonographic evidence for obstructive uropathy. Assessment and Plan - Plan 68y.o M with history as per HPI - Continue care as per primary team - no acute intervention needed - Dinh exchanged. Keep dinh in - Follow up on final UC and treat infection according to C&S - Pt needs to be instructed that dinh needs to be changed [id number], it can be done by VNS or urology office - Records from his will help to understand better pt's history - Pt needs to f/u with his Urologist after d/c as outpt in a day or two Urology remains available as needed Discussed Condition With: Dr Nilesh PIERSON attending
--- NOTE | 2018-05-25 15:39 | ECG ---
Date Performed: 05/25/2018 Time Performed: 11:25:56 PTAGE: 68 years EKG: Sinus rhythm WITH OCCASIONAL SUPRAVENTRICULAR PREMATURE COMPLEXES POSSIBLE LEFT ATRIAL ENLARGEMENT RIGHT BUNDLE B RANCH BLOCK LEFT ANTERIOR FASCICULAR BLOCK LEFT VENTRICULAR HYPERTROPHY AND ST-T CHANGE ANTEROSEPTAL MYOCARDIAL INFARCTION , OF INDETERMINATE AGE ABNORMAL ECG No significant change from prior electrocar diogram. PREVIOUS TRACING : 05/24/2018 18.00 DOCTOR: True Silva Interpretating Date/Time 05/25/2018 15:37:54
--- NOTE | 2018-05-25 16:16 | P.CONID ---
History of Present Illness Service: Infectious Disease Consult date: 05/25/18 Requesting Physician: Kasey Lemus Reason for Consult: Evaluate patient with UTI, possible PNA Primary Care Provider: PROVIDER NON STAFF Chief Complaint: Dinh issues/clogged, UTI History of Present Illness: Patient seen and examined. Records reviewed. Patient is a very poor historian Patient is a 68-year-old male, lives at home with his daughter, brought into the hospital for evaluation of his Dinh catheter. He was apparently complaining of some lower abdominal discomfort. It is unclear as to how long he has had the Dinh catheter. There was no output in his catheter, in the ED the Dinh was changed and it had 1100 cc of urine. There is no mention of any fever or chills. It is unclear as to why he has the Dinh catheter in place. There was mention that there was some obstruction and that he is supposed to have a procedure to relieve the obstruction. He denies any nausea vomiting or diarrhea. He still has some mild abdominal discomfort. The urinalysis did show significant pyuria. WBC 17,000. Creatinine is 1.58. Ultrasound did not show any evidence of hydronephrosis. Chest x-ray showing some infiltrates. Patient currently denies any significant congestion. He denies any chest pain. He is currently being diuresed for CHF. He has prior history of cardiomyopathy. Infectious disease consultation has been requested to assist with evaluation and treatment of UTI and possible pneumonia. Review of Systems Constitutional: Reports fatigue, Denies chills, Denies fever(s) Eyes: Denies discharge, Denies dry eyes Ears, Nose, Mouth, and Throat: Reports abnormal hearing, Denies difficulty swallowing, Denies mouth pain, Denies nasal discharge, Denies sore throat Cardiovascular: Denies chest pain, Denies shortness of breath Respiratory: Denies chest congestion, Denies cough, Denies shortness of breath Gastrointestinal: Reports abdominal pain, Denies loose stools, Denies nausea, Denies pain with swallowing, Denies vomiting Genitourinary: Reports blood in urine Musculoskeletal: Denies joint pain, Denies joint swelling Skin/Breast: Denies rash PMFSH - History History Provided By: Patient, Family Member - Medical History Medical History: Medical History (Last Reviewed 05/25/18 @ 16:09 by Mayra Wilkerson MD) Congestive heart failure Coronary artery disease Femoral-popliteal artery atherosclerosis Hyperlipidemia Hypertension Myocardial infarct - Surgical History Surgical History: Surgical History (Last Reviewed 05/25/18 @ 16:09 by Mayra Wilkerson MD) H/O hernia repair S/P CABG x 4 - Family History Family History: Family History (Last Reviewed 05/25/18 @ 16:09 by Mayra Wilkerson MD) Other Family history normal - Tobacco History Second Hand Smoke Exposure: Yes Tobacco Use In Past 30 Days: Yes Smoking Status: Former smoker Tobacco Type: Cigarettes - Alcohol History How Often Do You Have a Drink Containing Alcohol: Never - Substance Use History Substance History: No History of Abuse - Travel History Recent Travel in the [place] Within the Last 8 Weeks: No Recent Travel Out of the Country Within the Last 8 Weeks: No - Immunization History Tetanus Immunization: <5 Years Medications and Allergies Active Medications: Active Medications Acetaminophen (Tylenol) 650 mg PO Q4H PRN PRN Reason: Temp > 100.4 Al Hydroxide/Mg Hydroxide (Milk Of Magnesia Liq) 30 ml PO Q12H PRN PRN Reason: Mild Constipation Aspirin (Aspirin Chew) 81 mg PO DAILY [facility] Atorvastatin Calcium (Lipitor) 20 mg PO DAILY [facility] Bisacodyl (Dulcolax Supp) 10 mg RECTAL DAILY PRN PRN Reason: SEVERE CONSITIPATION Furosemide (Lasix Inj) 40 mg IV.PUSH BID@0900,1800 [facility] Heparin Sodium (Porcine) (Heparin Inj) 5,000 units SQ Q8H [facility] Last Admin: 05/25/18 13:55 Dose: 5,000 units Azithromycin 500 mg/ Sodium (Chloride) 250 mls @ 250 mls/hr IV.SIG Q24H [facility] Cefepime HCl 2,000 mg/ Sodium (Chloride) 100 mls @ 200 mls/hr IV.SIG Q12H [facility] Sodium Chloride (Ns Inj) 1,000 mls @ 70 mls/hr IV.CONT .[id number] [facility] Last Admin: 05/25/18 02:16 Dose: 70 mls/hr Lactulose (Lactulose Liq) 30 ml PO DAILY PRN PRN Reason: SEVERE CONSITIPATION Lisinopril (Prinivil) 10 mg PO DAILY [facility] Ondansetron HCl (Zofran Inj) 4 mg IV.PUSH Q6H PRN PRN Reason: NAUSEA OR VOMITING Senna/Docusate Sodium (Nadine-Colace) 1 tab PO BID ЕЛЕНА Sennosides (Senokot) 17.2 mg PO Q12H PRN PRN Reason: Moderate Constipation Allergies Allergy/AdvReac Type Severity Reaction Status Date / Time No Known Allergies Allergy Verified 05/24/18 16:21 Home Medications Medication Instructions Recorded Confirmed Type aspirin 81 mg PO DAILY 05/24/18 05/24/18 History atorvastatin 20 mg PO DAILY 05/24/18 05/24/18 History furosemide 20 mg PO DAILY 05/24/18 05/24/18 History lisinopril 10 mg PO DAILY 05/24/18 05/24/18 History Exam Vital signs: Vital Signs 05/24/18 16:14 05/24/18 20:05 05/24/18 23:15 Temperature 97.7 F Pulse Rate 60 68 Respiratory Rate 15 20 20 Blood Pressure 173/76 H 142/69 H Pulse Oximetry 94 L 96 05/25/18 00:00 05/25/18 02:03 05/25/18 08:00 Temperature 97.5 F L Pulse Rate 71 78 69 Respiratory Rate 20 18 18 Blood Pressure 121/71 108/68 137/58 L Pulse Oximetry 95 96 96 05/25/18 12:00 Temperature 97.3 F L Pulse Rate 56 L Respiratory Rate 18 Blood Pressure 122/54 L Pulse Oximetry 98 Intake & Output 05/24/18 05/25/18 05/25/18 18:59 06:59 18:59 Intake Total 1350 / 1350 Output Total 1999 Balance -650 / -650 Weight 104.326 kg Intake: IV 1350 / 1350 Azithromycin Inj 500 MG In NS 250 / 250 Inj 250 ML @ 250 mls/hr IV.SIG ONCE ONE Rx#:[id number] Maxipime Inj 2,000 MG In NS Inj 100 / 100 100 ML @ 200 mls/hr IV.SIG ONCE ONE Rx#:[id number] NS Inj 1,000 ML @ Wide Open IV. 1000 / 1000 SIG BOLUS ЕЛЕНА Rx#:[id number] Output: Urine Amount (Catheter) 1999 Indwelling Urethral Catheter 1999 Narrative: Physical Examination GENERAL: Patient is a well-nourished, well-developed make, awake and alert, not in respiratory distress. SKIN: Cool and dry. No generalized rash, no ecchymoses and no evidence of embolic lesions. HEAD: Atraumatic. Normocephalic. No temporal wasting, or tenderness. EYES: [place] conjunctiva. No petechia or hemorrhage. Pupils equal, round and reactive to light. Extraocular movements full and intact. No scleral icterus. No injection or drainage. EARS, NOSE AND THROAT: Nose without bleeding or purulent nasal discharge. No sinus tenderness. Mucous membranes pink and moist. No oral lesions noted. No exudate. No oral thrush. NECK: Trachea midline. Supple and not tender, no meningeal signs CARDIOVASCULAR: Regular rate and rhythm. No murmurs, rubs or gallops heard RESPIRATORY: Breath sounds equal bilaterally. Decreased at bases. No rales, wheezing or rhonchi ABDOMEN: Soft, not distended, has mild diffuse tenderness, no guarding or rebound. No organomegaly GENITOURINARY: Dinh cath in place, with cloudy urine, the glans penis has a linear opening or slit on left side with some drainage, exposed urethral mucosa MUSCULOSKELETAL: No cyanosis, or edema. No joint effusion, has good ROM. No calf tenderness. Well perfused and warm. NEUROLOGICAL: Awake and alert. Cranial nerves grossly intact. Motor grossly within normal limits. PSYCHIATRIC: calm and cooperative. LINE: No evidence of infection Results - Labs CBC & Chem 7: 05/24/18 18:10 05/24/18 18:10 Labs: Laboratory Results - last 24 hr 05/24/18 05/24/18 05/24/18 00:00 00:00 18:10 WBC 17.9 H RBC 4.86 Hgb 15.8 Hct 45.7 MCV 94.0 MCH 32.6 MCHC 34.6 RDW 14.5 Plt Count 253 MPV 9.3 Neut % (Auto) 89.3 H Lymph % (Auto) 3.3 L [place] % (Auto) 7.3 Eos % (Auto) 0.0 Baso % (Auto) 0.1 Neut # (Auto) 16.0 H Lymph # (Auto) 0.6 L [place] # (Auto) 1.3 H Eos # (Auto) 0.0 Baso # (Auto) 0.0 WBC Differential . Differential Comment Auto diff final PT INR APTT Sodium Potassium Chloride Carbon Dioxide Anion Gap BUN Creatinine Estimated GFR Random Glucose Lactic Acid Calcium Total Bilirubin AST ALT Alkaline Phosphatase Total Creatine Kinase 311 H CK-MB (CK-2) 4.5 H CK-MB (CK-2) % 1.4 Troponin I 0.37 H C-Reactive Protein B-Natriuretic Peptide 2358 H Total Protein Albumin Urine Color Urine Clarity Urine pH Ur Specific [place] Urine Protein Urine Glucose (UA) Urine Ketones Urine Occult Blood Urine Nitrate Urine Bilirubin Urine Urobilinogen Ur Leukocyte Esterase Urine RBC Urine WBC Urine WBC Clumps Ur Squamous Epith Cells Amorphous Sediment Urine Bacteria Hyaline Casts Urine Mucus Micro UA Comment Ur Microscopic Review Urine Culture Comments 05/24/18 05/24/18 05/24/18 18:10 18:10 18:10 WBC RBC Hgb Hct MCV MCH MCHC RDW Plt Count MPV Neut % (Auto) Lymph % (Auto) [place] % (Auto) Eos % (Auto) Baso % (Auto) Neut # (Auto) Lymph # (Auto) [place] # (Auto) Eos # (Auto) Baso # (Auto) WBC Differential Differential Comment PT 11.6 INR 1.1 APTT 25.6 Sodium 136 Potassium 4.4 Chloride 103 Carbon Dioxide 22.8 Anion Gap 10 BUN 33 H Creatinine 1.58 H Estimated GFR 44 L Random Glucose 123 H Lactic Acid 3.9 H Calcium 9.5 Total Bilirubin 1.0 AST 19 ALT 27 Alkaline Phosphatase 75 Total Creatine Kinase CK-MB (CK-2) CK-MB (CK-2) % Troponin I C-Reactive Protein B-Natriuretic Peptide Total Protein 8.4 H Albumin 3.9 Urine Color Urine Clarity Urine pH Ur Specific [place] Urine Protein Urine Glucose (UA) Urine Ketones Urine Occult Blood Urine Nitrate Urine Bilirubin Urine Urobilinogen Ur Leukocyte Esterase Urine RBC Urine WBC Urine WBC Clumps Ur Squamous Epith Cells Amorphous Sediment Urine Bacteria Hyaline Casts Urine Mucus Micro UA Comment Ur Microscopic Review Urine Culture Comments 05/24/18 05/24/18 05/25/18 22:20 22:35 12:20 WBC RBC Hgb Hct MCV MCH MCHC RDW Plt Count MPV Neut % (Auto) Lymph % (Auto) [place] % (Auto) Eos % (Auto) Baso % (Auto) Neut # (Auto) Lymph # (Auto) [place] # (Auto) Eos # (Auto) Baso # (Auto) WBC Differential Differential Comment PT INR APTT Sodium Potassium Chloride Carbon Dioxide Anion Gap BUN Creatinine Estimated GFR Random Glucose Lactic Acid 1.7 Calcium Total Bilirubin AST ALT Alkaline Phosphatase Total Creatine Kinase CK-MB (CK-2) CK-MB (CK-2) % Troponin I 0.29 H C-Reactive Protein B-Natriuretic Peptide Total Protein Albumin Urine Color [place] Urine Clarity Cloudy H Urine pH 7.0 Ur Specific [place] 1.011 Urine Protein 100 H Urine Glucose (UA) Negative Urine Ketones Trace H Urine Occult Blood Moderate H Urine Nitrate Negative Urine Bilirubin Negative Urine Urobilinogen Less than 2 Ur Leukocyte Esterase Moderate H Urine RBC 115 H Urine WBC 91 H Urine WBC Clumps Rare H Ur Squamous Epith Cells 1 Amorphous Sediment Few H Urine Bacteria Occasional H Hyaline Casts 5 Urine Mucus Few H Micro UA Comment Cath-culture ind Ur Microscopic Review Not Reportable Urine Culture Comments Cath-cult indicated 05/25/18 05/25/18 12:20 12:20 WBC RBC Hgb Hct MCV MCH MCHC RDW Plt Count MPV Neut % (Auto) Lymph % (Auto) [place] % (Auto) Eos % (Auto) Baso % (Auto) Neut # (Auto) Lymph # (Auto) [place] # (Auto) Eos # (Auto) Baso # (Auto) WBC Differential Differential Comment PT INR APTT Sodium Potassium Chloride Carbon Dioxide Anion Gap BUN Creatinine Estimated GFR Random Glucose Lactic Acid Calcium Total Bilirubin AST ALT Alkaline Phosphatase Total Creatine Kinase 187 CK-MB (CK-2) CK-MB (CK-2) % Troponin I C-Reactive Protein 6.21 H B-Natriuretic Peptide Total Protein Albumin Urine Color Urine Clarity Urine pH Ur Specific [place] Urine Protein Urine Glucose (UA) Urine Ketones Urine Occult Blood Urine Nitrate Urine Bilirubin Urine Urobilinogen Ur Leukocyte Esterase Urine RBC Urine WBC Urine WBC Clumps Ur Squamous Epith Cells Amorphous Sediment Urine Bacteria Hyaline Casts Urine Mucus Micro UA Comment Ur Microscopic Review Urine Culture Comments - Imaging Impressions Chest X-Ray 05/24/18 22:40 CONCLUSION: Cardiomegaly. Prominent interstitium which may represent some pulmonary venous hypertension or mild edema. Patchy alveolar density representing consolidation or atelectasis at the right base. Abdomen/Bladder Ultrasound 05/25/18 00:00 CONCLUSION: 1. 2.1 cm left mid renal pole cyst. 2. Otherwise, unremarkable renal ultrasound examination. 3. Specifically, no sonographic evidence for obstructive uropathy. Assessment and Plan - Plan Impression UTI, patient with dinh - has what looks like eroded glans creating a karge opening due to dinh Chronic dinh, for ? Some infiltrates on CXR, clinically does not have S/sxs of PNA Renal insufficiency Recommendation Continue IV Cefepime Follow C/S He is being diuresed Get records from his urologist - Dr Hoyos in [place] Adjust Abx once C/S finalized Urology also evaluating patient I will determine course of Rx once work-up completed I will follow along with you Thank you for this consultation D/W Dr Lemus ([facility])
--- NOTE | 2018-05-25 17:14 | ECHRPT ---
Indication: CARDIOMYOPATHY CONCLUSIONS Severely dilated left ventricle. The left ventricular systolic function is severely reduced with an estimated ejection fraction less than 20%. There is diffuse global hypokinesis with distinct regional wall motion abnormalities. The right ventricular systoilc function is moderately decreased. Trace mitral valve regurgitation. Trace aortic valve regurgitation. There is trace tricuspid valve regurgitation. BP: / HR: Rhythm: MEASUREMENTS (Male / Female) Normal Values Technical Quality: 2D ECHO LV Diastolic Diameter PLAX 7.9 cm 4.2 - 5.9 / 3.9 - 5.3 cm LV Systolic Diameter PLAX 7.4 cm IVS Diastolic Thickness 1.2 cm 0.6 - 1.0 / 0.6 - 0.9 cm LVPW Diastolic Thickness 1.2 cm 0.6 - 1.0 / 0.6 - 0.9 cm LV Relative Wall Thickness 0.3 RV Internal Dim ED PLAX 2.3 cm LA Systolic Diameter LX 5.8 cm 3.0 - 4.0 / 2.7 - 3.8 cm LV Ejection Fraction MOD 4C 16.4 % LV Ejection Fraction 4C AL 14.1 % DOPPLER AV Peak Velocity 112.8 cm/s AV Peak Gradient 5.1 mmHg AV Mean Gradient 9.0 mmHg AV Velocity Time Integral 44.1 cm Mitral E Point Velocity 98.1 cm/s Mitral A Point Velocity 57.4 cm/s Mitral E to A Ratio 1.7 TR Peak Velocity 190.3 cm/s TR Peak Gradient 14.5 mmHg Right Atrial Pressure 10.0 mmHg Pulmonary Artery Systolic Pressu 24.5 mmHg Right Ventricular Systolic Press 24.5 mmHg FINDINGS LEFT VENTRICLE Severely dilated left ventricle. Wall thickness is normal. The left ventricular systolic function is severely reduced with an estimated ejection fraction less than 20%. There is diffuse global hypokinesis with distinct regional wall motion abnormalities. RIGHT VENTRICLE The right ventricle is mildly dilated. The right ventricular systoilc function is moderately decreased. LEFT ATRIUM The left atrial size is moderately dilated. RIGHT ATRIUM The right atrial size is mildly dilated. ATRIAL SEPTUM Normal atrial septal thickness without atrial level shunting by limited color doppler interrogation. AORTA The aortic root and proximal ascending aorta are normal in size on limited imaging. MITRAL VALVE Mitral annular calcification is present. Trace mitral valve regurgitation. No mitral valve stenosis. AORTIC VALVE Aortic valve sclerosis is present. Trace aortic valve regurgitation. No aortic valve stenosis. TRICUSPID VALVE Grossly normal There is trace tricuspid valve regurgitation. No tricuspid valve stenosis. The estimated pulmonary arterial pressure is 25 mmHg. PULMONARY VALVE No pulmonary valve regurgitation or stenosis. VESSELS The inferior vena cava is normal in size. PERICARDIUM No pericardial effusion. Gregorio Basilio DO (Electronically Signed) Final Date:25 May 2018 17:13
[2018-05-25] MEDS: Lisinopril 10 MG Tablet PO SCH (19:00)
[2018-05-25] MEDS: Senna/Docusate Sodium 8.6/50 MG Tablet PO SCH ×2 (19:07→22:19)
[2018-05-25] MEDS ORDERED: Azithromycin Inj 500 MG in Sodium Chlor 0.9% Inj 250 ML IV.SIG SCH (23:00)
[2018-05-26 01:14] LABS: Anion Gap 9 meq/L (5-15); Blood Urea Nitrogen 28 mg/dL (7-18); Calcium 8.2 mg/dL (8.5-10.1); Carbon Dioxide 27.2 meq/L (21.0-32.0); Chloride 104 meq/L (98-107); Glomerular Filtration Rate Greater Than 89 mL/min (>89); Glucose,Random 104 mg/dL (74-106); Magnesium 2.3 mg/dL (1.5-2.5); Potassium 3.7 meq/L (3.5-5.1); Sodium 140 meq/L (136-145)
[2018-05-26] MEDS: Heparin - SQ 10,000 UNITS/ML Vial SQ SCH (06:06)
--- NOTE | 2018-05-26 07:30 | MB ---
cc: Gregorio Basilio DO DATE: 05/25/2018 REASON FOR CONSULTATION: Congestive heart failure with a history of coronary artery disease. HISTORY OF PRESENT ILLNESS: Clovis Angeles is a 68-year-old male who presented to [facility] Emergency Room for evaluation of his Jimenez catheter. Apparently, he has had an indwelling Jimenez catheter for the past 3 months secondary to urinary retention. He was evaluated by the home health nurse today who was concerned that the catheter might be clogged. During his evaluation, a troponin was checked and elevated at 0.37. BMP was also checked and was elevated at 2358. Apparently, he was seen by Cardiology in the past and underwent CABG in 2002. He followed with Dr. Olvera for some time and was noted to previously have an ejection fraction of 25%-30%. The patient is overall lethargic and unable to provide much of a history. Apparently, the patient no longer sees Dr. Olvera as he was discharged from their practice for an unknown reason. In seeing him, he is currently somewhat lethargic but in no acute distress, denying chest pain or shortness of breath. PAST MEDICAL HISTORY: 1. Coronary artery disease. 2. Chronic systolic heart failure. 3. Peripheral artery disease. 4. Hyperlipidemia. 5. Hypertension. PAST SURGICAL HISTORY: 1. CABG x 4 (2002) at [facility]. 2. Hernia repair. 3. Femoral-popliteal bypass. ALLERGIES: NO KNOWN DRUG ALLERGIES. MEDICATIONS: 1. Aspirin 81 mg daily. 2. Lasix 20 mg daily. 3. Lisinopril 10 mg daily. 4. Lipitor 20 mg daily. FAMILY HISTORY: Denies sudden cardiac within the family. SOCIAL HISTORY: The patient previously smoked. He denies alcohol or drug abuse. REVIEW OF SYSTEMS: Fourteen systems were reviewed including osteopathic. Pertinent positives and negatives above, otherwise negative. PHYSICAL EXAMINATION: VITAL SIGNS: Temperature 98.0, heart rate 80, blood pressure 109/73, respirations 18, pulse oximetry 95% on 2 liters. GENERAL: The patient is mildly lethargic, but no acute distress. HEENT: Extraocular muscles intact. Mucous membranes moist. NECK: Supple. No JVD at 45 degrees. No carotid bruits heard bilaterally. Carotid upstroke is brisk in nature. HEART: Regular rate and rhythm. Positive 1st and 2nd heart sounds with no noted murmurs, gallops, or rubs. LUNGS: Clear to auscultation bilaterally. No wheezes, rales, or rhonchi. ABDOMEN: Soft, nontender, nondistended. No organomegaly noted. EXTREMITIES: Show no clubbing, cyanosis, or edema. Femoral and distal pulses are intact bilaterally. NEUROLOGIC: Other than being lethargic, no focal deficits. SKIN: Warm, dry, and intact. DIAGNOSTIC DATA: Hemoglobin 15.8, hematocrit 45.7, platelets 253. BUN 33, creatinine 1.58. Lactic acid 3.9. Troponin 0.37 decreasing to 0.29. BNP 2358. Electrocardiogram (05/25/2018 at 11:25): Sinus rhythm with PACs, possible left atrial enlargement, right bundle branch block, left anterior fascicular block, LVH with secondary ST-T wave changes, possible anterior septal myocardial infarction. ASSESSMENT: 1. [id number] systolic heart failure. 1. Sepsis due to urinary tract infection. 2. Lactic acidosis. 3. Minimally elevated troponin. 4. Acute kidney injury. 5. History of coronary artery disease with coronary artery bypass grafting x 4. 6. Known cardiomyopathy. RECOMMENDATIONS: 1. Mr. Angeles presented with what appears to be a clogged Jimenez catheter and this most likely led to his UTI as well as sepsis. 2. He does have an elevated lactic acid, but this has come down since presentation. 3. He does have a minimally elevated troponin, but this is not an acute coronary event or NSTEMI. This is most likely due to his acute systolic heart failure from a urinary obstruction. 4. At this time, he is not a candidate for ICD therapy even though he has a known cardiomyopathy. He has not been on optimal medical therapy and has not followed with a pallet stone positioner. We will make sure that he continues on his lisinopril and he should be started on beta tee therapy. 5. Further recommendations will be made based on the hospital course. Thank you for allowing me to see Clovis Angeles. If there are any questions, please do not hesitate to call. DO ANDRZEJ Hudson/vilma , 01:04 AM , 01:17 AM
[2018-05-26] MEDS: Lisinopril 10 MG Tablet PO SCH (08:24)
[2018-05-26] MEDS: Senna/Docusate Sodium 8.6/50 MG Tablet PO SCH ×2 (08:27→20:35)
[2018-05-26 08:46] LABS: Eos % (Auto) 0.1 % (0.0-4.0); Hemoglobin 12.8 gm/dL (13.0-17.0); Lymph # (Auto) 0.6 th/mm3 (1.0-4.8); Lymph % (Auto) 4.6 % (9.0-44.0); Mean Corpuscular HGB Conc 32.7 % (32.0-36.0); Mean Corpuscular Hemoglobin 31.1 pg (27.0-34.0); Mean Corpuscular Volume 94.9 fL (80.0-100.0); Mean Platelet Volume 10.1 fL (7.0-11.0); Mono % (Auto) 7.4 % (0.0-8.0); Neut # (Auto) 12.2 th/mm3 (1.8-7.7); Neut % (Auto) 87.9 % (16.0-70.0); Platelet Count 204 th/mm3 (150-450); Red Blood Count 4.11 mil/mm3 (4.50-5.90); Red Cell Distribution Width 14.4 % (11.6-17.2); White Blood Count 13.8 th/mm3 (4.0-11.0)
[2018-05-26 09:26] LABS: Alanine Aminotransferase 21 U/L (12-78); Albumin 2.9 g/dL (3.4-5.0); Alkaline Phosphatase 55 U/L (45-117); Anion Gap 11 meq/L (5-15); Aspartate Aminotransferase 19 U/L (15-37); Blood Urea Nitrogen 34 mg/dL (7-18); Calcium 8.2 mg/dL (8.5-10.1); Carbon Dioxide 23.9 meq/L (21.0-32.0); Chloride 104 meq/L (98-107); Glomerular Filtration Rate 77 mL/min (>89); Glucose,Random 117 mg/dL (74-106); Potassium 3.9 meq/L (3.5-5.1); Sodium 139 meq/L (136-145); Total Protein 6.2 g/dL (6.4-8.2)
--- NOTE | 2018-05-26 11:42 | P.PNIM ---
Subjective Interval history: Patient had an episode of dark emesis this morning. He reports nausea is better after the vomiting episode. He denies abdominal pain. Physical Exam Vital signs: Vital Signs 05/25/18 12:00 05/25/18 16:00 05/25/18 20:00 Temperature 97.3 F L 98 F 97.8 F Pulse Rate 56 L 80 64 Respiratory Rate 18 18 18 Blood Pressure 122/54 L 109/73 115/57 L Pulse Oximetry 98 95 94 L 05/26/18 00:00 05/26/18 00:57 05/26/18 04:00 Temperature 97.7 F 98.9 F Pulse Rate 86 84 Respiratory Rate 18 19 Blood Pressure 140/84 105/68 Pulse Oximetry 94 L 96 95 05/26/18 08:00 05/26/18 10:43 Temperature 97.8 F Pulse Rate 81 Respiratory Rate 20 Blood Pressure 99/71 L Pulse Oximetry 96 96 Intake & Output 05/25/18 05/26/18 05/26/18 18:59 06:59 18:59 Intake Total 100 / 100 1100 / 1100 Output Total 3000 / 3000 1000 / 1000 Balance -2900 / -2900 100 / 100 Weight 94.5 kg Intake: IV 100 / 100 1100 / 1100 NS Inj 1,000 ML @ 70 mls/hr IV. 1000 / 1000 CONT .[id number] ЕЛЕНА Rx#:[id number] Maxipime Inj 2,000 MG In NS Inj 100 / 100 100 / 100 100 ML @ 200 mls/hr IV.SIG Q12H ЕЛЕНА Rx#:[id number] Output: Urine 1000 / 1000 1000 / 1000 Urine Amount (Catheter) 1999 Indwelling Urethral Catheter 1999 Narrative: GENERAL: Patient appears older than stated age. Tend to minimize symptoms. CARDIOVASCULAR: Normal rate and regular rhythm without murmurs, gallops, or rubs. RESPIRATORY: Good respiratory efforts. Breath sounds equal and clear to auscultation bilaterally. GASTROINTESTINAL: Abdomen soft, non-tender, non-distended. Hypoactive bowel sounds MUSCULOSKELETAL: Extremities without cyanosis, or edema. NEURO: Alert & Oriented x4 to person, place, time, situation. Moves all ext x4 PSYCH: Appropriate mood and affect. - Urinary Catheter Management Indwelling Urethral Catheter Cath placed during this visit: yes Reason for continuing: Acute urinary retention Insertion date: 05/24/18 Insertion time: 22:30 Results - Labs CBC & Chem 7: 05/26/18 07:16 05/26/18 07:16 Laboratory Results - last 24 hr 05/24/18 05/25/18 05/25/18 22:35 12:20 12:20 WBC RBC Hgb Hct MCV MCH MCHC RDW Plt Count MPV Neut % (Auto) Lymph % (Auto) [place] % (Auto) Eos % (Auto) Baso % (Auto) Neut # (Auto) Lymph # (Auto) [place] # (Auto) Eos # (Auto) Baso # (Auto) WBC Differential Differential Comment Sodium Potassium Chloride Carbon Dioxide Anion Gap BUN Creatinine Estimated GFR Random Glucose Calcium Magnesium Total Bilirubin AST ALT Alkaline Phosphatase Total Creatine Kinase Troponin I 0.29 H C-Reactive Protein 6.21 H B-Natriuretic Peptide Total Protein Albumin Urine Color [place] Urine Clarity Cloudy H Urine pH 7.0 Ur Specific [place] 1.011 Urine Protein 100 H Urine Glucose (UA) Negative Urine Ketones Trace H Urine Occult Blood Moderate H Urine Nitrate Negative Urine Bilirubin Negative Urine Urobilinogen Less than 2 Ur Leukocyte Esterase Moderate H Urine RBC 115 H Urine WBC 91 H Urine WBC Clumps Rare H Ur Squamous Epith Cells 1 Amorphous Sediment Few H Urine Bacteria Occasional H Hyaline Casts 5 Urine Mucus Few H Micro UA Comment Cath-culture ind Urine Culture Comments Cath-cult indicated 05/25/18 05/25/18 05/26/18 12:20 15:31 00:39 WBC RBC Hgb Hct MCV MCH MCHC RDW Plt Count MPV Neut % (Auto) Lymph % (Auto) [place] % (Auto) Eos % (Auto) Baso % (Auto) Neut # (Auto) Lymph # (Auto) [place] # (Auto) Eos # (Auto) Baso # (Auto) WBC Differential Differential Comment Sodium 140 Potassium 3.7 Chloride 104 Carbon Dioxide 27.2 Anion Gap 9 BUN 28 H Creatinine 0.85 Estimated GFR Greater than 89 Random Glucose 104 Calcium 8.2 L D Magnesium 2.3 Total Bilirubin AST ALT Alkaline Phosphatase Total Creatine Kinase 187 Troponin I C-Reactive Protein B-Natriuretic Peptide 1462 H Total Protein Albumin Urine Color Urine Clarity Urine pH Ur Specific [place] Urine Protein Urine Glucose (UA) Urine Ketones Urine Occult Blood Urine Nitrate Urine Bilirubin Urine Urobilinogen Ur Leukocyte Esterase Urine RBC Urine WBC Urine WBC Clumps Ur Squamous Epith Cells Amorphous Sediment Urine Bacteria Hyaline Casts Urine Mucus Micro UA Comment Urine Culture Comments 05/26/18 05/26/18 05/26/18 07:16 07:16 07:16 WBC 13.8 H RBC 4.11 L Hgb 12.8 L D Hct 39.0 MCV 94.9 MCH 31.1 MCHC 32.7 RDW 14.4 Plt Count 204 MPV 10.1 Neut % (Auto) 87.9 H Lymph % (Auto) 4.6 L [place] % (Auto) 7.4 Eos % (Auto) 0.1 Baso % (Auto) 0.0 Neut # (Auto) 12.2 H Lymph # (Auto) 0.6 L [place] # (Auto) 1.0 H Eos # (Auto) 0.0 Baso # (Auto) 0.0 WBC Differential . Differential Comment Auto diff final Sodium 139 Potassium 3.9 Chloride 104 Carbon Dioxide 23.9 Anion Gap 11 BUN 34 H Creatinine 0.97 Estimated GFR 77 L Random Glucose 117 H Calcium 8.2 L Magnesium Total Bilirubin 0.6 AST 19 ALT 21 Alkaline Phosphatase 55 Total Creatine Kinase Troponin I C-Reactive Protein B-Natriuretic Peptide 2052 H Total Protein 6.2 L D Albumin 2.9 L D Urine Color Urine Clarity Urine pH Ur Specific [place] Urine Protein Urine Glucose (UA) Urine Ketones Urine Occult Blood Urine Nitrate Urine Bilirubin Urine Urobilinogen Ur Leukocyte Esterase Urine RBC Urine WBC Urine WBC Clumps Ur Squamous Epith Cells Amorphous Sediment Urine Bacteria Hyaline Casts Urine Mucus Micro UA Comment Urine Culture Comments Microbiology 05/24/18 18:15 Blood - Peripheral Aerobic Blood Culture - Preliminary No growth in 2 days 05/24/18 18:15 Blood - Peripheral Anaerobic Blood Culture - Preliminary No growth in 2 days 05/24/18 18:10 Blood - Peripheral Aerobic Blood Culture - Preliminary No growth in 2 days 05/24/18 18:10 Blood - Peripheral Anaerobic Blood Culture - Preliminary No growth in 2 days 05/24/18 22:35 Catheterized Urine Urine Culture - Preliminary gram negative rods 05/26/18 00:51 Throat Group A Streptococcus Screen (DONALDO) - Final Assessment and Plan - Plan 68 Y/O male with: Sepsis secondary to UTI: - Patient has indwelling dinh that was obstructed. Catheter changed. Appreciate Urology following - ID following. Continue Cefepime and follow cultures. Acute on chronic systolic CHF: -Appreciate cardiology following. Discussed with Dr. Basilio. Patient needs to be on optimal heart failure therapy. Unfortunately he has not been compliant. -Continue aspirin, lisinopril, started on Coreg. - Reported EF of 30% -Lasix 40 mg IV twice daily. Dark emesis on 05/26/18: - Highly concern for GI bleeding - Consult GI for assistance - Start Protonix IV - Hold Heparin he has been getting for DVT prophylaxis. Discussed with GI nurse practitioner. Acute kidney injury: Secondary to obstruction. Resolved since obstruction relieved by replacement of Dinh. GI prophylaxis: PPI. DVT PPx: Heparin on hold due to concern for acute GI bleeding.
--- NOTE | 2018-05-26 13:16 | P.CONGI ---
History of Present Illness Consult date: 05/26/18 Consult reason: Dark emesis, hgb trending down Chief complaint: Urosepsis, Patchy Lung Infiltrates History of Present Illness: This is a 60-year-old male past medical history significant for coronary artery disease, hypertension, hyperlipidemia, CHF and urinary retention who presented to the emergency department yesterday for evaluation of his indwelling Jimenez catheter. Patient reports that the catheter has been in for 3 months secondary to urinary retention, was advised to come to the ER for evaluation of non- draining catheter. His catheter was changed in the ER with good urinary output, has been seen by urology who is not recommending any acute interventions and would like the pt to follow up in the office. Cardiology has also evaluated pt for elevated troponin and BNP, noted to be not secondary to NSTEMI or ACS and most likely due to acute systolic heart failure secondary to urinary obstruction. Our service has been consulted to evaluate pt for dark emesis and hemoglobin which has trended down since admission. Pt reports nausea and emesis x 2 days, states he can not keep anything down. He is actively vomiting during my exam and emesis appears to be more of feces color. Denies any hematemesis but does state that is is very dark in color. Denies any associated abdominal pain. Does report some heartburn on Wednesday that he took Tums for with good relief, otherwise denies frequent heartburn. Did have issues with heartburn years ago and was taking Tums around the clock at that time. He can not recall when his last BM was but denies any melena or hematochezia. Does report passing flatus. Pt denies any known ingestion of suspicious foods, sick contacts and recent travel. Denies previous EGD. Had a colonoscopy in 2001 in [facility] and reports findings of 27 polyps. <Brittany Palma - Last Filed: 05/26/18 17:43> Review of Systems Constitutional: Denies chills, Denies fever(s) Gastrointestinal: Reports constipation, Reports heartburn, Reports nausea, Reports vomiting, Denies abdominal pain, Denies black, tarry stools, Denies bright, red blood in stools <Brittany Palma - Last Filed: 05/26/18 17:43> PMF - History History Provided By: Patient, Family Member - Medical History Medical History: Medical History (Last Reviewed 05/26/18 @ 08:30 by Debra Bear) Congestive heart failure Coronary artery disease Femoral-popliteal artery atherosclerosis Hyperlipidemia Hypertension Myocardial infarct - Surgical History Surgical History: Surgical History (Last Reviewed 05/26/18 @ 09:05 by Yessi Bradshaw) H/O hernia repair S/P CABG x 4 - Family History Family History: Family History (Last Reviewed 05/25/18 @ 16:09 by Mayra Wilkerson MD) Other Family history normal - Tobacco History Second Hand Smoke Exposure: Yes Tobacco Use In Past 30 Days: Yes Smoking Status: Former smoker Tobacco Type: Cigarettes - Alcohol History How Often Do You Have a Drink Containing Alcohol: Never - Substance Use History Substance History: No History of Abuse - Travel History Recent Travel in the [place] Within the Last 8 Weeks: No Recent Travel Out of the Country Within the Last 8 Weeks: No - Immunization History Tetanus Immunization: <5 Years <Brittany Palma - Last Filed: 05/26/18 17:43> - Medical History Medical History: Medical History (Last Reviewed 05/26/18 @ 08:30 by Debra Bear) Congestive heart failure Coronary artery disease Femoral-popliteal artery atherosclerosis Hyperlipidemia Hypertension Myocardial infarct - Surgical History Surgical History: Surgical History (Last Reviewed 05/26/18 @ 09:05 by Yessi Bradshaw) H/O hernia repair S/P CABG x 4 - Family History Family History: Family History (Last Reviewed 05/25/18 @ 16:09 by Mayra Wilkerson MD) Other Family history normal <Kevin Hendricks - Last Filed: 05/26/18 21:32> Medications and Allergies Active Medications: Active Medications Acetaminophen (Tylenol) 650 mg PO Q4H PRN PRN Reason: Temp > 100.4 Al Hydroxide/Mg Hydroxide (Milk Of Liane Liq) 30 ml PO Q12H PRN PRN Reason: Mild Constipation Aspirin (Aspirin Chew) 81 mg PO DAILY [facility] Last Admin: 05/26/18 08:27 Dose: 81 mg Atorvastatin Calcium (Lipitor) 20 mg PO DAILY [facility] Last Admin: 05/26/18 08:27 Dose: 20 mg Bisacodyl (Dulcolax Supp) 10 mg RECTAL DAILY PRN PRN Reason: SEVERE CONSITIPATION Carvedilol (Coreg) 3.125 mg PO BID [facility] Last Admin: 05/26/18 08:24 Dose: Not Given Furosemide (Lasix Inj) 40 mg IV.PUSH BID@0900,1800 [facility] Last Admin: 05/26/18 08:28 Dose: 40 mg Heparin Sodium (Porcine) (Heparin Inj) 5,000 units SQ Q8H [facility] Last Admin: 05/26/18 06:06 Dose: 5,000 units Cefepime HCl 2,000 mg/ Sodium (Chloride) 100 mls @ 200 mls/hr IV.SIG Q12H [facility] Last Infusion: 05/26/18 11:57 Dose: Infused Lactulose (Lactulose Liq) 30 ml PO DAILY PRN PRN Reason: SEVERE CONSITIPATION Lisinopril (Prinivil) 10 mg PO DAILY [facility] Last Admin: 05/26/18 08:24 Dose: Not Given Ondansetron HCl (Zofran Inj) 4 mg IV.PUSH Q6H PRN PRN Reason: NAUSEA OR VOMITING Last Admin: 05/26/18 00:40 Dose: 4 mg Senna/Docusate Sodium (Nadine-Colace) 1 tab PO BID [facility] Last Admin: 05/26/18 08:27 Dose: 1 tab Sennosides (Senokot) 17.2 mg PO Q12H PRN PRN Reason: Moderate Constipation <Brittany Palma - Last Filed: 05/26/18 17:43> Active Medications: Active Medications Acetaminophen (Tylenol) 650 mg PO Q4H PRN PRN Reason: Temp > 100.4 Al Hydroxide/Mg Hydroxide (Milk Of Magnesia Liq) 30 ml PO Q12H PRN PRN Reason: Mild Constipation Aspirin (Aspirin Chew) 81 mg PO DAILY [facility] Last Admin: 05/26/18 08:27 Dose: 81 mg Atorvastatin Calcium (Lipitor) 20 mg PO DAILY [facility] Last Admin: 05/26/18 08:27 Dose: 20 mg Bisacodyl (Dulcolax Supp) 10 mg RECTAL DAILY PRN PRN Reason: SEVERE CONSITIPATION Carvedilol (Coreg) 3.125 mg PO BID [facility] Last Admin: 05/26/18 20:35 Dose: 3.125 mg Furosemide (Lasix Inj) 40 mg IV.PUSH BID@0900,1800 [facility] Last Admin: 05/26/18 17:10 Dose: 40 mg Heparin Sodium (Porcine) (Heparin Inj) 5,000 units SQ Q8H [facility] Last Admin: 05/26/18 06:06 Dose: 5,000 units Cefepime HCl 2,000 mg/ Sodium (Chloride) 100 mls @ 200 mls/hr IV.SIG Q12H [facility] Last Infusion: 05/26/18 11:57 Dose: Infused Lactulose (Lactulose Liq) 30 ml PO DAILY PRN PRN Reason: SEVERE CONSITIPATION Lisinopril (Prinivil) 10 mg PO DAILY [facility] Last Admin: 05/26/18 08:24 Dose: Not Given Ondansetron HCl (Zofran Inj) 4 mg IV.PUSH Q6H PRN PRN Reason: NAUSEA OR VOMITING Last Admin: 05/26/18 00:40 Dose: 4 mg Pantoprazole Sodium (Protonix Inj) 40 mg IV.PUSH Q12H [facility] Last Admin: 05/26/18 17:36 Dose: 40 mg Senna/Docusate Sodium (Nadine-Colace) 1 tab PO BID [facility] Last Admin: 05/26/18 20:35 Dose: Not Given Sennosides (Senokot) 17.2 mg PO Q12H PRN PRN Reason: Moderate Constipation <Kevin Hendricks E - Last Filed: 05/26/18 21:32> Allergies Allergy/AdvReac Type Severity Reaction Status Date / Time No Known Allergies Allergy Verified 05/24/18 16:21 Home Medications Medication Instructions Recorded Confirmed Type aspirin 81 mg PO DAILY 05/24/18 05/24/18 History atorvastatin 20 mg PO DAILY 05/24/18 05/24/18 History furosemide 20 mg PO DAILY 05/24/18 05/24/18 History lisinopril 10 mg PO DAILY 05/24/18 05/24/18 History Exam Vital signs: Vital Signs 05/25/18 16:00 05/25/18 20:00 05/26/18 00:00 Temperature 98 F 97.8 F 97.7 F Pulse Rate 80 64 86 Respiratory Rate 18 18 18 Blood Pressure 109/73 115/57 L 140/84 Pulse Oximetry 95 94 L 94 L 05/26/18 00:57 05/26/18 04:00 05/26/18 08:00 Temperature 98.9 F 97.8 F Pulse Rate 84 81 Respiratory Rate 19 20 Blood Pressure 105/68 99/71 L Pulse Oximetry 96 95 96 05/26/18 10:43 Temperature Pulse Rate Respiratory Rate Blood Pressure Pulse Oximetry 96 Intake & Output 05/25/18 05/26/18 05/26/18 18:59 06:59 18:59 Intake Total 100 / 100 1100 / 1100 100 / 100 Output Total 3000 / 3000 1000 / 1000 Balance -2900 / -2900 100 / 100 100 / 100 Weight 94.5 kg Intake: IV 100 / 100 1100 / 1100 100 / 100 NS Inj 1,000 ML @ 70 mls/hr IV. 1000 / 1000 CONT .[id number] ЕЛЕНА Rx#:[id number] Maxipime Inj 2,000 MG In NS Inj 100 / 100 100 / 100 100 / 100 100 ML @ 200 mls/hr IV.SIG Q12H ЕЛЕНА Rx#:[id number] Output: Urine 1000 / 1000 1000 / 1000 Urine Amount (Catheter) 1999 Indwelling Urethral Catheter 1999 - Constitutional no acute distress - Routine HEENT Exam Head: Present: normocephalic, atraumatic - Routine Respiratory Exam Absent: accessory muscle use - Routine Abdominal Exam Present: soft, normoactive bowel sounds, distended. Absent: tenderness - Routine Skin Exam Present: dry, warm - Routine Neurological Exam Present: alert, oriented X3 <Brittany Palma - Last Filed: 05/26/18 17:43> Vital signs: Vital Signs 05/26/18 00:00 05/26/18 00:57 05/26/18 04:00 Temperature 97.7 F 98.9 F Pulse Rate 86 84 Respiratory Rate 18 19 Blood Pressure 140/84 105/68 Pulse Oximetry 94 L 96 95 05/26/18 08:00 05/26/18 10:43 05/26/18 12:00 Temperature 97.8 F 98.0 F Pulse Rate 81 89 Respiratory Rate 20 22 Blood Pressure 99/71 L 170/109 H Pulse Oximetry 96 96 98 05/26/18 16:00 05/26/18 20:00 Temperature 97.8 F 97.6 F Pulse Rate 76 75 Respiratory Rate 16 18 Blood Pressure 145/78 H 127/86 Pulse Oximetry 93 L 97 Intake & Output 05/26/18 05/26/18 05/27/18 06:59 18:59 06:59 Intake Total 1100 / 1100 100 / 100 Output Total 1000 / 1000 Balance 100 / 100 100 / 100 Weight 94.5 kg Intake: IV 1100 / 1100 100 / 100 NS Inj 1,000 ML @ 70 mls/hr IV. 1000 / 1000 CONT .[id number] ЕЛЕНА Rx#:[id number] Maxipime Inj 2,000 MG In NS Inj 100 / 100 100 / 100 100 ML @ 200 mls/hr IV.SIG Q12H ЕЛЕНА Rx#:[id number] Output: Urine 1000 / 1000 <Kevin Hendricks E - Last Filed: 05/26/18 21:32> Results - Labs CBC & Chem 7: 05/26/18 07:16 05/26/18 07:16 Labs: Laboratory Results - last 24 hr 05/24/18 05/25/18 05/25/18 22:35 12:20 12:20 WBC RBC Hgb Hct MCV MCH MCHC RDW Plt Count MPV Neut % (Auto) Lymph % (Auto) [place] % (Auto) Eos % (Auto) Baso % (Auto) Neut # (Auto) Lymph # (Auto) [place] # (Auto) Eos # (Auto) Baso # (Auto) WBC Differential Differential Comment Sodium Potassium Chloride Carbon Dioxide Anion Gap BUN Creatinine Estimated GFR Random Glucose Calcium Magnesium Total Bilirubin AST ALT Alkaline Phosphatase Total Creatine Kinase 187 C-Reactive Protein 6.21 H B-Natriuretic Peptide Total Protein Albumin Urine Color [place] Urine Clarity Cloudy H Urine pH 7.0 Ur Specific [place] 1.011 Urine Protein 100 H Urine Glucose (UA) Negative Urine Ketones Trace H Urine Occult Blood Moderate H Urine Nitrate Negative Urine Bilirubin Negative Urine Urobilinogen Less than 2 Ur Leukocyte Esterase Moderate H Urine RBC 115 H Urine WBC 91 H Urine WBC Clumps Rare H Ur Squamous Epith Cells 1 Amorphous Sediment Few H Urine Bacteria Occasional H Hyaline Casts 5 Urine Mucus Few H Micro UA Comment Cath-culture ind Urine Culture Comments Cath-cult indicated 05/25/18 05/26/18 05/26/18 15:31 00:39 07:16 WBC 13.8 H RBC 4.11 L Hgb 12.8 L D Hct 39.0 MCV 94.9 MCH 31.1 MCHC 32.7 RDW 14.4 Plt Count 204 MPV 10.1 Neut % (Auto) 87.9 H Lymph % (Auto) 4.6 L [place] % (Auto) 7.4 Eos % (Auto) 0.1 Baso % (Auto) 0.0 Neut # (Auto) 12.2 H Lymph # (Auto) 0.6 L [place] # (Auto) 1.0 H Eos # (Auto) 0.0 Baso # (Auto) 0.0 WBC Differential . Differential Comment Auto diff final Sodium 140 Potassium 3.7 Chloride 104 Carbon Dioxide 27.2 Anion Gap 9 BUN 28 H Creatinine 0.85 Estimated GFR Greater than 89 Random Glucose 104 Calcium 8.2 L D Magnesium 2.3 Total Bilirubin AST ALT Alkaline Phosphatase Total Creatine Kinase C-Reactive Protein B-Natriuretic Peptide 1462 H Total Protein Albumin Urine Color Urine Clarity Urine pH Ur Specific [place] Urine Protein Urine Glucose (UA) Urine Ketones Urine Occult Blood Urine Nitrate Urine Bilirubin Urine Urobilinogen Ur Leukocyte Esterase Urine RBC Urine WBC Urine WBC Clumps Ur Squamous Epith Cells Amorphous Sediment Urine Bacteria Hyaline Casts Urine Mucus Micro UA Comment Urine Culture Comments 05/26/18 05/26/18 07:16 07:16 WBC RBC Hgb Hct MCV MCH MCHC RDW Plt Count MPV Neut % (Auto) Lymph % (Auto) [place] % (Auto) Eos % (Auto) Baso % (Auto) Neut # (Auto) Lymph # (Auto) [place] # (Auto) Eos # (Auto) Baso # (Auto) WBC Differential Differential Comment Sodium 139 Potassium 3.9 Chloride 104 Carbon Dioxide 23.9 Anion Gap 11 BUN 34 H Creatinine 0.97 Estimated GFR 77 L Random Glucose 117 H Calcium 8.2 L Magnesium Total Bilirubin 0.6 AST 19 ALT 21 Alkaline Phosphatase 55 Total Creatine Kinase C-Reactive Protein B-Natriuretic Peptide 2052 H Total Protein 6.2 L D Albumin 2.9 L D Urine Color Urine Clarity Urine pH Ur Specific [place] Urine Protein Urine Glucose (UA) Urine Ketones Urine Occult Blood Urine Nitrate Urine Bilirubin Urine Urobilinogen Ur Leukocyte Esterase Urine RBC Urine WBC Urine WBC Clumps Ur Squamous Epith Cells Amorphous Sediment Urine Bacteria Hyaline Casts Urine Mucus Micro UA Comment Urine Culture Comments <Brittany Palma - Last Filed: 05/26/18 17:43> - Labs CBC & Chem 7: 05/26/18 20:42 05/26/18 07:16 Labs: Laboratory Results - last 24 hr 05/24/18 05/26/18 05/26/18 22:35 00:39 07:16 WBC 13.8 H RBC 4.11 L Hgb 12.8 L D Hct 39.0 MCV 94.9 MCH 31.1 MCHC 32.7 RDW 14.4 Plt Count 204 MPV 10.1 Neut % (Auto) 87.9 H Lymph % (Auto) 4.6 L [place] % (Auto) 7.4 Eos % (Auto) 0.1 Baso % (Auto) 0.0 Neut # (Auto) 12.2 H Lymph # (Auto) 0.6 L [place] # (Auto) 1.0 H Eos # (Auto) 0.0 Baso # (Auto) 0.0 WBC Differential . Differential Comment Auto diff final Sodium 140 Potassium 3.7 Chloride 104 Carbon Dioxide 27.2 Anion Gap 9 BUN 28 H Creatinine 0.85 Estimated GFR Greater than 89 Random Glucose 104 Calcium 8.2 L D Magnesium 2.3 Total Bilirubin AST ALT Alkaline Phosphatase B-Natriuretic Peptide Total Protein Albumin Urine Color [place] Urine Clarity Cloudy H Urine pH 7.0 Ur Specific [place] 1.011 Urine Protein 100 H Urine Glucose (UA) Negative Urine Ketones Trace H Urine Occult Blood Moderate H Urine Nitrate Negative Urine Bilirubin Negative Urine Urobilinogen Less than 2 Ur Leukocyte Esterase Moderate H Urine RBC 115 H Urine WBC 91 H Urine WBC Clumps Rare H Ur Squamous Epith Cells 1 Amorphous Sediment Few H Urine Bacteria Occasional H Hyaline Casts 5 Urine Mucus Few H Micro UA Comment Cath-culture ind Urine Culture Comments Cath-cult indicated 05/26/18 05/26/18 05/26/18 07:16 07:16 20:42 WBC RBC Hgb 14.3 Hct 43.3 MCV MCH MCHC RDW Plt Count MPV Neut % (Auto) Lymph % (Auto) [place] % (Auto) Eos % (Auto) Baso % (Auto) Neut # (Auto) Lymph # (Auto) [place] # (Auto) Eos # (Auto) Baso # (Auto) WBC Differential Differential Comment Sodium 139 Potassium 3.9 Chloride 104 Carbon Dioxide 23.9 Anion Gap 11 BUN 34 H Creatinine 0.97 Estimated GFR 77 L Random Glucose 117 H Calcium 8.2 L Magnesium Total Bilirubin 0.6 AST 19 ALT 21 Alkaline Phosphatase 55 B-Natriuretic Peptide 2052 H Total Protein 6.2 L D Albumin 2.9 L D Urine Color Urine Clarity Urine pH Ur Specific [place] Urine Protein Urine Glucose (UA) Urine Ketones Urine Occult Blood Urine Nitrate Urine Bilirubin Urine Urobilinogen Ur Leukocyte Esterase Urine RBC Urine WBC Urine WBC Clumps Ur Squamous Epith Cells Amorphous Sediment Urine Bacteria Hyaline Casts Urine Mucus Micro UA Comment Urine Culture Comments - Imaging Impressions Abdomen X-Ray 05/26/18 13:10 CONCLUSION: 1. Findings consistent with partial small bowel obstruction versus at least moderate adynamic ileus. 2. Moderate gaseous distention of the stomach. Patient may benefit from NG tube decompression. <Kevin Hendricks - Last Filed: 05/26/18 21:32> Assessment and Plan - Plan Assessment: - Intractable nausea and vomiting x 2 days, per primary team noticing dark emesis with downward trending hgb States he can not keep anything down. Denies any hematemesis but does state that is is very dark in color. Denies any associated abdominal pain. Does report some heartburn on Wednesday that he took Tums for with good relief, otherwise denies frequent heartburn. Did have issues with heartburn years ago and was taking Tums around the clock at that time. He can not recall when his last BM was but denies any melena or hematochezia. Does report passing flatus. Pt denies any known ingestion of suspicious foods, sick contacts and recent travel. Denies previous EGD. Had a colonoscopy in 2001 in [facility] and reports findings of 27 polyps. Pt actively vomiting during my exam, appears to be more of a feces color and not really coffee ground emesis. - Elevated troponin, BNP- cardiology following- noted to be not secondary to NSTEMI or ACS and most likely due to acute systolic heart failure secondary to urinary obstruction. - Chronic indwelling urinary catheter, presented with obstruction, now resolved. Plan: STAT KUB to r/o obstruction NG to LIWS Suspect obstruction, however, if negative for obstruction will plan for EGD tomorrow Per Dr. Basilio, cardiology OK for GI procedure if needed Obtain consent NPO now Antiemetics PRN Hold on any laxatives until obstruction is ruled out Further recommendations based on KUB findings and clinical course Discussed with Dr. Arreola Pt has been seen and examined by myself and Dr. Hendricks and this note is written on his behalf <Brittany Palma - Last Filed: 05/26/18 17:43> - Plan Patient seen and examined Agree with above Continue with current supportive care Monitor labs We will proceed with an upper endoscopy tomorrow <Kevin Hnedricks - Last Filed: 05/26/18 21:32>
--- NOTE | 2018-05-26 13:17 | P.PNID ---
Subjective Remarks: Patient is a 68-year-old male, lives at home with his daughter, brought into the hospital for evaluation of his Dinh catheter. He was apparently complaining of some lower abdominal discomfort. It is unclear as to how long he has had the Dinh catheter. There was no output in his catheter, in the ED the Dinh was changed and it had 1100 cc of urine. There is no mention of any fever or chills. It is unclear as to why he has the Dinh catheter in place. There was mention that there was some obstruction and that he is supposed to have a procedure to relieve the obstruction. He denies any nausea vomiting or diarrhea. He still has some mild abdominal discomfort. The urinalysis did show significant pyuria. WBC 17,000. Creatinine is 1.58. Ultrasound did not show any evidence of hydronephrosis. Chest x-ray showing some infiltrates. Patient currently denies any significant congestion. He denies any chest pain. He is currently being diuresed for CHF. He has prior history of cardiomyopathy. Infectious disease consultation has been requested to assist with evaluation and treatment of UTI and possible pneumonia. Notes reviewed Temps ok Has good UO Creatinine down to normal UC with GNR BC negative Had vomiting earlier, better US no hydro Antibiotics: Cefepime Lines: PIV Past Medical History: Congestive heart failure Coronary artery disease Femoral-popliteal artery atherosclerosis Hyperlipidemia Hypertension Myocardial infarct H/O hernia repair S/P CABG x 4 Allergies/Adverse Reactions: Allergies No Known Allergies Allergy (Verified 05/24/18 16:21) Objective Vital Signs 05/25/18 16:00 05/25/18 20:00 05/26/18 00:00 Temperature 98 F 97.8 F 97.7 F Pulse Rate 80 64 86 Respiratory Rate 18 18 18 Blood Pressure 109/73 115/57 L 140/84 Pulse Oximetry 95 94 L 94 L 05/26/18 00:57 05/26/18 04:00 05/26/18 08:00 Temperature 98.9 F 97.8 F Pulse Rate 84 81 Respiratory Rate 19 20 Blood Pressure 105/68 99/71 L Pulse Oximetry 96 95 96 05/26/18 10:43 05/26/18 12:00 Temperature 98.0 F Pulse Rate 45 L Respiratory Rate 22 Blood Pressure 170/109 H Pulse Oximetry 96 98 Intake & Output 05/25/18 05/26/18 05/26/18 18:59 06:59 18:59 Intake Total 100 / 100 1100 / 1100 100 / 100 Output Total 3000 / 3000 1000 / 1000 Balance -2900 / -2900 100 / 100 100 / 100 Weight 94.5 kg Intake: IV 100 / 100 1100 / 1100 100 / 100 NS Inj 1,000 ML @ 70 mls/hr IV. 1000 / 1000 CONT .[id number] [facility] Rx#:[id number] Maxipime Inj 2,000 MG In NS Inj 100 / 100 100 / 100 100 / 100 100 ML @ 200 mls/hr IV.SIG Q12H [facility] Rx#:[id number] Output: Urine 1000 / 1000 1000 / 1000 Urine Amount (Catheter) 1999 Indwelling Urethral Catheter 199905/24/18 18:15 Blood - Peripheral Aerobic Blood Culture - Preliminary No growth in 2 days 05/24/18 18:15 Blood - Peripheral Anaerobic Blood Culture - Preliminary No growth in 2 days 05/24/18 18:10 Blood - Peripheral Aerobic Blood Culture - Preliminary No growth in 2 days 05/24/18 18:10 Blood - Peripheral Anaerobic Blood Culture - Preliminary No growth in 2 days 05/24/18 22:35 Catheterized Urine Urine Culture - Preliminary gram negative rods 05/26/18 00:51 Throat Group A Streptococcus Screen/Cult - Pending 05/26/18 00:51 Throat Group A Streptococcus Screen ([facility]) - Final Lab - Hematology Results 05/24/18 05/26/18 18:10 07:16 WBC 17.9 H 13.8 H RBC 4.86 4.11 L Hgb 15.8 12.8 L D Hct 45.7 39.0 MCV 94.0 94.9 MCH 32.6 31.1 MCHC 34.6 32.7 RDW 14.5 14.4 Plt Count 253 204 MPV 9.3 10.1 Neut % (Auto) 89.3 H 87.9 H Lymph % (Auto) 3.3 L 4.6 L [place] % (Auto) 7.3 7.4 Eos % (Auto) 0.0 0.1 Baso % (Auto) 0.1 0.0 Neut # (Auto) 16.0 H 12.2 H Lymph # (Auto) 0.6 L 0.6 L [place] # (Auto) 1.3 H 1.0 H Eos # (Auto) 0.0 0.0 Baso # (Auto) 0.0 0.0 WBC Differential . . Differential Comment Auto diff final Auto diff final Lab - Chemistry Results 05/24/18 05/24/18 05/24/18 00:00 00:00 18:10 Sodium 136 Potassium 4.4 Chloride 103 Carbon Dioxide 22.8 Anion Gap 10 BUN 33 H Creatinine 1.58 H Estimated GFR 44 L Random Glucose 123 H Lactic Acid Calcium 9.5 Magnesium Total Bilirubin 1.0 AST 19 ALT 27 Alkaline Phosphatase 75 Total Creatine Kinase 311 H CK-MB (CK-2) 4.5 H CK-MB (CK-2) % 1.4 Troponin I 0.37 H C-Reactive Protein B-Natriuretic Peptide 2358 H Total Protein 8.4 H Albumin 3.9 05/24/18 05/24/18 05/25/18 18:10 22:20 12:20 Sodium Potassium Chloride Carbon Dioxide Anion Gap BUN Creatinine Estimated GFR Random Glucose Lactic Acid 3.9 H 1.7 Calcium Magnesium Total Bilirubin AST ALT Alkaline Phosphatase Total Creatine Kinase CK-MB (CK-2) CK-MB (CK-2) % Troponin I 0.29 H C-Reactive Protein B-Natriuretic Peptide Total Protein Albumin 05/25/18 05/25/18 05/25/18 12:20 12:20 15:31 Sodium Potassium Chloride Carbon Dioxide Anion Gap BUN Creatinine Estimated GFR Random Glucose Lactic Acid Calcium Magnesium Total Bilirubin AST ALT Alkaline Phosphatase Total Creatine Kinase 187 CK-MB (CK-2) CK-MB (CK-2) % Troponin I C-Reactive Protein 6.21 H B-Natriuretic Peptide 1462 H Total Protein Albumin 05/26/18 05/26/18 05/26/18 00:39 07:16 07:16 Sodium 140 139 Potassium 3.7 3.9 Chloride 104 104 Carbon Dioxide 27.2 23.9 Anion Gap 9 11 BUN 28 H 34 H Creatinine 0.85 0.97 Estimated GFR Greater than 89 77 L Random Glucose 104 117 H Lactic Acid Calcium 8.2 L D 8.2 L Magnesium 2.3 Total Bilirubin 0.6 AST 19 ALT 21 Alkaline Phosphatase 55 Total Creatine Kinase CK-MB (CK-2) CK-MB (CK-2) % Troponin I C-Reactive Protein B-Natriuretic Peptide 2052 H Total Protein 6.2 L D Albumin 2.9 L D Imaging: ITS Impressions Chest X-Ray 05/24/18 22:40 CONCLUSION: Cardiomegaly. Prominent interstitium which may represent some pulmonary venous hypertension or mild edema. Patchy alveolar density representing consolidation or atelectasis at the right base. Abdomen/Bladder Ultrasound 05/25/18 00:00 CONCLUSION: 1. 2.1 cm left mid renal pole cyst. 2. Otherwise, unremarkable renal ultrasound examination. 3. Specifically, no sonographic evidence for obstructive uropathy. Physical Exam: GENERAL: awake and alert, not in respiratory distress. SKIN: Cool and dry. No generalized rash, no ecchymoses and no evidence of embolic lesions. HEAD: Atraumatic. Normocephalic. No temporal wasting, or tenderness. EYES: [place] conjunctiva. No petechia or hemorrhage. Pupils equal, round and reactive to light. Extraocular movements full and intact. No scleral icterus. No injection or drainage. EARS, NOSE AND THROAT: Nose without bleeding or purulent nasal discharge. No sinus tenderness. Mucous membranes pink and moist. No oral lesions noted. NECK: Trachea midline. Supple and not tender, no meningeal signs CARDIOVASCULAR: Regular rate and rhythm. No murmurs, rubs or gallops heard RESPIRATORY: Breath sounds equal bilaterally. Decreased at bases. No rales, wheezing or rhonchi ABDOMEN: Soft, not distended, has mild diffuse tenderness, no guarding or rebound. No organomegaly GENITOURINARY: Dinh cath in place, with cloudy urine, the glans penis has a linear opening or slit on left side with some drainage, exposed urethral mucosa MUSCULOSKELETAL: No cyanosis, or edema. No joint effusion, has good ROM. No calf tenderness. Well perfused and warm. NEUROLOGICAL: Awake and alert. Cranial nerves grossly intact. Motor grossly within normal limits. PSYCHIATRIC: calm and cooperative. LINE: No evidence of infection Assessment and Plan - Plan Impression UTI, patient with dinh - has what looks like eroded glans creating a large opening due to dinh Chronic dinh, for ? Some infiltrates on CXR, clinically does not have S/sxs of PNA Renal insufficiency Recommendation Continue IV Cefepime Follow C/S He is being diuresed Get records from his urologist - Dr Hoyos in [place] Adjust Abx once C/S finalized Monitor progress Should be able to use oral Abx to complete his UTI Rx
--- NOTE | 2018-05-26 14:29 | XR ---
EXAM DATE: 05/26/2018 2:16 PM EDT AGE/SEX: 68 years / Male INDICATIONS: Vomiting, No bowel movement for three weeks. Evaluate for obstruction. CLINICAL DATA: This is the patient's subsequent encounter. Patient reports that signs and symptoms h ave been present for 3 weeks and indicates a pain score of 5/10. MEDICAL/SURGICAL HISTORY: . Congestive heart failure. Hypertension. Myocardial infarction. Hype rlipidemia. CAD. . Hernia. CABG. Hernia repair. COMPARISON: No prior exams available for comparison. FINDINGS: There is moderate gaseous distention of the stomach with multiple loops of air-filled mildly distend ed small bowel measuring up tor 5.9 cm in the left upper quadrant. Air and stool seen throughout the colon extending to the rectum. No gross pneumatosis or free air. There is a catheter in the pelvis. C lustered calcifications in the left pelvis. Degenerative changes of the lower lumbar spine. CONCLUSION: 1. Findings consistent with partial small bowel obstruction versus at least moderate adynamic ileus. 2. Moderate gaseous distention of the stomach. Patient may benefit from NG tube decompression. Electronically signed by: Robbin Ayala MD 05/26/2018 2:28 PM EDT
[2018-05-26] MEDS: Pantoprazole Inj 40 MG Vial IV.PUSH SCH (17:36)
[2018-05-26 21:22] LABS: Hematocrit 43.3 % (39.0-51.0); Hemoglobin 14.3 gm/dL (13.0-17.0)
--- NOTE | 2018-05-26 23:11 | P.PNCA ---
Subjective Interval history: No events overnight More awake today Able to answer questions Laying in bed comfortably Episode of dark emesis Medications and Allergies Active Medications: Active Medications Acetaminophen (Tylenol) 650 mg PO Q4H PRN PRN Reason: Temp > 100.4 Al Hydroxide/Mg Hydroxide (Milk Of Magnesia Liq) 30 ml PO Q12H PRN PRN Reason: Mild Constipation Aspirin (Aspirin Chew) 81 mg PO DAILY [facility] Last Admin: 05/26/18 08:27 Dose: 81 mg Atorvastatin Calcium (Lipitor) 20 mg PO DAILY [facility] Last Admin: 05/26/18 08:27 Dose: 20 mg Bisacodyl (Dulcolax Supp) 10 mg RECTAL DAILY PRN PRN Reason: SEVERE CONSITIPATION Carvedilol (Coreg) 3.125 mg PO BID [facility] Last Admin: 05/26/18 20:35 Dose: 3.125 mg Furosemide (Lasix Inj) 40 mg IV.PUSH BID@0900,1800 [facility] Last Admin: 05/26/18 17:10 Dose: 40 mg Heparin Sodium (Porcine) (Heparin Inj) 5,000 units SQ Q8H [facility] Last Admin: 05/26/18 06:06 Dose: 5,000 units Cefepime HCl 2,000 mg/ Sodium (Chloride) 100 mls @ 200 mls/hr IV.SIG Q12H [facility] Last Infusion: 05/26/18 11:57 Dose: Infused Lactulose (Lactulose Liq) 30 ml PO DAILY PRN PRN Reason: SEVERE CONSITIPATION Lisinopril (Prinivil) 10 mg PO DAILY [facility] Last Admin: 05/26/18 08:24 Dose: Not Given Ondansetron HCl (Zofran Inj) 4 mg IV.PUSH Q6H PRN PRN Reason: NAUSEA OR VOMITING Last Admin: 05/26/18 00:40 Dose: 4 mg Pantoprazole Sodium (Protonix Inj) 40 mg IV.PUSH Q12H [facility] Last Admin: 05/26/18 17:36 Dose: 40 mg Senna/Docusate Sodium (Nadine-Colace) 1 tab PO BID [facility] Last Admin: 05/26/18 20:35 Dose: Not Given Sennosides (Senokot) 17.2 mg PO Q12H PRN PRN Reason: Moderate Constipation Allergies Allergy/AdvReac Type Severity Reaction Status Date / Time No Known Allergies Allergy Verified 05/24/18 16:21 Home Medications Medication Instructions Recorded Confirmed Type aspirin 81 mg PO DAILY 05/24/18 05/24/18 History atorvastatin 20 mg PO DAILY 05/24/18 05/24/18 History furosemide 20 mg PO DAILY 05/24/18 05/24/18 History lisinopril 10 mg PO DAILY 05/24/18 05/24/18 History Physical Exam Vital signs: Vital Signs 05/26/18 00:00 05/26/18 00:57 05/26/18 04:00 Temperature 97.7 F 98.9 F Pulse Rate 86 84 Respiratory Rate 18 19 Blood Pressure 140/84 105/68 Pulse Oximetry 94 L 96 95 05/26/18 08:00 05/26/18 10:43 05/26/18 12:00 Temperature 97.8 F 98.0 F Pulse Rate 81 89 Respiratory Rate 20 22 Blood Pressure 99/71 L 170/109 H Pulse Oximetry 96 96 98 05/26/18 16:00 05/26/18 20:00 Temperature 97.8 F 97.6 F Pulse Rate 76 75 Respiratory Rate 16 18 Blood Pressure 145/78 H 127/86 Pulse Oximetry 93 L 97 Intake & Output 05/26/18 05/26/18 05/27/18 06:59 18:59 06:59 Intake Total 1100 / 1100 100 / 100 Output Total 1000 / 1000 Balance 100 / 100 100 / 100 Weight 94.5 kg Intake: IV 1100 / 1100 100 / 100 NS Inj 1,000 ML @ 70 mls/hr IV. 1000 / 1000 CONT .[id number] Rx#:[id number] Maxipime Inj 2,000 MG In NS Inj 100 / 100 100 / 100 100 ML @ 200 mls/hr IV.SIG Q12H [facility] Rx#:[id number] Output: Urine 1000 / 1000 Narrative: GENERAL: Patient appears older than stated age. Tend to minimize symptoms. CARDIOVASCULAR: Normal rate and regular rhythm without murmurs, gallops, or rubs. RESPIRATORY: Good respiratory efforts. Breath sounds equal and clear to auscultation bilaterally. GASTROINTESTINAL: Abdomen soft, non-tender, non-distended. Hypoactive bowel sounds MUSCULOSKELETAL: Extremities without cyanosis, or edema. NEURO: Alert & Oriented x4 to person, place, time, situation. Moves all ext x4 PSYCH: Appropriate mood and affect. - Urinary Catheter Management Indwelling Urethral Catheter Cath placed during this visit: yes Reason for continuing: Acute urinary retention Insertion date: 05/24/18 Insertion time: 22:30 Results 05/26/18 20:42 05/26/18 07:16 Cardiac Enzymes 05/24/18 05/24/18 05/25/18 Range/Units 00:00 00:00 12:20 AST (15-37) U/L CK-MB (CK-2) 4.5 H (0.5-3.6) ng/mL Troponin I 0.37 H 0.29 H (0.02-0.05) ng/mL B-Natriuretic Peptide 2358 H (0-100) pg/mL 05/25/18 05/26/18 05/26/18 Range/Units 15:31 07:16 07:16 AST 19 (15-37) U/L CK-MB (CK-2) (0.5-3.6) ng/mL Troponin I (0.02-0.05) ng/mL B-Natriuretic Peptide 1462 H 2052 H (0-100) pg/mL Coagulation 05/24/18 05/25/18 05/26/18 Range/Units 00:00 15:31 07:16 B-Natriuretic Peptide 2358 H 1462 H 2052 H (0-100) pg/mL CBC 05/26/18 05/26/18 Range/Units 07:16 20:42 WBC 13.8 H (4.0-11.0) th/mm3 RBC 4.11 L (4.50-5.90) mil/mm3 Hgb 12.8 L D 14.3 (13.0-17.0) gm/dL Hct 39.0 43.3 (39.0-51.0) % Plt Count 204 (150-450) th/mm3 Neut # (Auto) 12.2 H (1.8-7.7) th/mm3 Lymph # (Auto) 0.6 L (1.0-4.8) th/mm3 [place] # (Auto) 1.0 H (0.0-0.9) th/mm3 Eos # (Auto) 0.0 (0.0-0.4) th/mm3 Baso # (Auto) 0.0 (0.0-0.2) th/mm3 Comprehensive Metabolic Panel 05/26/18 05/26/18 Range/Units 00:39 07:16 Sodium 140 139 (136-145) meq/L Potassium 3.7 3.9 (3.5-5.1) meq/L Chloride 104 104 (98-107) meq/L Carbon Dioxide 27.2 23.9 (21.0-32.0) meq/L BUN 28 H 34 H (7-18) mg/dL Creatinine 0.85 0.97 (0.60-1.30) mg/dL Calcium 8.2 L D 8.2 L (8.5-10.1) mg/dL AST 19 (15-37) U/L ALT 21 (12-78) U/L Alkaline Phosphatase 55 (45-117) U/L Total Protein 6.2 L D (6.4-8.2) g/dL Albumin 2.9 L D (3.4-5.0) g/dL Intake and Output 05/26/18 05/26/18 05/27/18 14:59 22:59 06:59 Intake Total 100 / 100 Balance 100 / 100 Intake: IV 100 / 100 Maxipime Inj 2,000 MG In NS Inj 100 / 100 100 ML @ 200 mls/hr IV.SIG Q12H [facility] Rx#:[id number] - Imaging and Cardiology Imaging: Impressions Chest X-Ray 05/24/18 22:40 CONCLUSION: Cardiomegaly. Prominent interstitium which may represent some pulmonary venous hypertension or mild edema. Patchy alveolar density representing consolidation or atelectasis at the right base. Abdomen/Bladder Ultrasound 05/25/18 00:00 CONCLUSION: 1. 2.1 cm left mid renal pole cyst. 2. Otherwise, unremarkable renal ultrasound examination. 3. Specifically, no sonographic evidence for obstructive uropathy. Abdomen X-Ray 05/26/18 13:10 CONCLUSION: 1. Findings consistent with partial small bowel obstruction versus at least moderate adynamic ileus. 2. Moderate gaseous distention of the stomach. Patient may benefit from NG tube decompression. Assessment and Plan - Assessment (1) Elevated troponin Code(s): R74.8 - Abnormal levels of other serum enzymes Status: Acute (2) Chronic CHF Code(s): I50.9 - Heart failure, unspecified Status: Acute (3) Acute UTI Code(s): N39.0 - Urinary tract infection, site not specified Status: Acute (4) Acute retention of urine Code(s): R33.8 - Other retention of urine Status: Acute (5) Sepsis Code(s): A41.9 - Sepsis, unspecified organism Status: Acute - Plan 1) UTI with clogged [place] catheter 2) Elevated lactic acid 3) Minimally elevated troponin Type 2 in nature due to lactic acidosis/sepsis as well as acute systolic heart failure due to urinary obstruction 4) Acute on chronic systolic heart failure Diuresed well Appears well compensated now as he lays in bed comfortably 5) Pre-operative risk assessment for GI procedure No signs of ACS, compensated from heart failure standpoint, hemodynamically stable May proceed as an intermediate risk 6) Not a candidate for ICD therapy as he has not been on optimal medical therapy Started on BB therapy, con't Lisinopril (5) Sepsis Qualifiers: Sepsis type: sepsis due to unspecified organism Qualified Code(s): A41.9 - Sepsis, unspecified organism
[2018-05-27] MEDS: Pantoprazole Inj 40 MG Vial IV.PUSH SCH ×2 (05:38→17:39)
[2018-05-27 06:43] LABS: Hematocrit 38.9 % (39.0-51.0); Hemoglobin 12.9 gm/dL (13.0-17.0); Mean Corpuscular HGB Conc 33.3 % (32.0-36.0); Mean Corpuscular Hemoglobin 31.2 pg (27.0-34.0); Mean Corpuscular Volume 93.9 fL (80.0-100.0); Mean Platelet Volume 9.1 fL (7.0-11.0); Platelet Count 204 th/mm3 (150-450); Red Blood Count 4.14 mil/mm3 (4.50-5.90); Red Cell Distribution Width 14.3 % (11.6-17.2); White Blood Count 14.5 th/mm3 (4.0-11.0)
[2018-05-27 07:10] LABS: Calcium 8.3 mg/dL (8.5-10.1); Carbon Dioxide 30.1 meq/L (21.0-32.0); Potassium 3.4 meq/L (3.5-5.1)
[2018-05-27] MEDS: Lisinopril 10 MG Tablet PO SCH (10:41)
[2018-05-27] MEDS: Senna/Docusate Sodium 8.6/50 MG Tablet PO SCH ×2 (10:42→21:39)
--- NOTE | 2018-05-27 11:03 | P.PNID ---
Subjective Remarks: Patient is a 68-year-old male, lives at home with his daughter, brought into the hospital for evaluation of his Dinh catheter. He was apparently complaining of some lower abdominal discomfort. It is unclear as to how long he has had the Dinh catheter. There was no output in his catheter, in the ED the Dinh was changed and it had 1100 cc of urine. There is no mention of any fever or chills. It is unclear as to why he has the Dihn catheter in place. There was mention that there was some obstruction and that he is supposed to have a procedure to relieve the obstruction. He denies any nausea vomiting or diarrhea. He still has some mild abdominal discomfort. The urinalysis did show significant pyuria. WBC 17,000. Creatinine is 1.58. Ultrasound did not show any evidence of hydronephrosis. Chest x-ray showing some infiltrates. Patient currently denies any significant congestion. He denies any chest pain. He is currently being diuresed for CHF. He has prior history of cardiomyopathy. Infectious disease consultation has been requested to assist with evaluation and treatment of UTI and possible pneumonia. Notes reviewed D/W JIM [place] ok Has good UO Creatinine down to normal Records from his urologist not available UC with PSAE and mixed GNR BC negative US no hydro No abdominal pain C/O pain at dinh site Patient states he walks at home, uses a cane Antibiotics: Cefepime Lines: PIV Past Medical History: Congestive heart failure Coronary artery disease Femoral-popliteal artery atherosclerosis Hyperlipidemia Hypertension Myocardial infarct H/O hernia repair S/P CABG x 4 Allergies/Adverse Reactions: Allergies No Known Allergies Allergy (Verified 05/24/18 16:21) Objective Vital Signs 05/26/18 12:00 05/26/18 16:00 05/26/18 20:00 Temperature 98.0 F 97.8 F 97.6 F Pulse Rate 89 76 75 Respiratory Rate 22 16 18 Blood Pressure 170/109 H 145/78 H 127/86 Pulse Oximetry 98 93 L 97 05/27/18 00:00 05/27/18 04:00 05/27/18 04:48 Temperature 97.8 F 97.3 F L Pulse Rate 54 L 54 L Respiratory Rate 18 18 Blood Pressure 134/62 99/56 L Pulse Oximetry 99 97 99 05/27/18 08:00 Temperature 97.9 F Pulse Rate 44 L Respiratory Rate 20 Blood Pressure 143/70 H Pulse Oximetry 96 Intake & Output 05/26/18 05/27/18 05/27/18 18:59 06:59 18:59 Intake Total 100 / 100 100 / 100 Output Total 2099 Balance 100 / 100 -1999 -1999 Weight 94.5 kg Intake: IV 100 / 100 100 / 100 Maxipime Inj 2,000 MG In NS Inj 100 / 100 100 / 100 100 ML @ 200 mls/hr IV.SIG Q12H [facility] Rx#:[id number] Output: Urine 209905/24/18 22:35 Catheterized Urine Urine Culture - Preliminary Pseudomonas species 05/24/18 18:15 Blood - Peripheral Aerobic Blood Culture - Preliminary No growth in 2 days 05/24/18 18:15 Blood - Peripheral Anaerobic Blood Culture - Preliminary No growth in 2 days 05/24/18 18:10 Blood - Peripheral Aerobic Blood Culture - Preliminary No growth in 2 days 05/24/18 18:10 Blood - Peripheral Anaerobic Blood Culture - Preliminary No growth in 2 days 05/26/18 00:51 Throat Group A Streptococcus Screen/Cult - Pending 05/26/18 00:51 Throat Group A Streptococcus Screen ([facility]) - Final Lab - Hematology Results 05/26/18 05/26/18 05/27/18 07:16 20:42 06:29 WBC 13.8 H 14.5 H RBC 4.11 L 4.14 L Hgb 12.8 L D 14.3 12.9 L Hct 39.0 43.3 38.9 L MCV 94.9 93.9 MCH 31.1 31.2 MCHC 32.7 33.3 RDW 14.4 14.3 Plt Count 204 204 MPV 10.1 9.1 Neut % (Auto) 87.9 H Lymph % (Auto) 4.6 L [place] % (Auto) 7.4 Eos % (Auto) 0.1 Baso % (Auto) 0.0 Neut # (Auto) 12.2 H Lymph # (Auto) 0.6 L [place] # (Auto) 1.0 H Eos # (Auto) 0.0 Baso # (Auto) 0.0 WBC Differential . Differential Comment Auto diff final Lab - Chemistry Results 05/25/18 05/25/18 05/25/18 12:20 12:20 12:20 Sodium Potassium Chloride Carbon Dioxide Anion Gap BUN Creatinine Estimated GFR Random Glucose Calcium Magnesium Total Bilirubin AST ALT Alkaline Phosphatase Total Creatine Kinase 187 Troponin I 0.29 H C-Reactive Protein 6.21 H B-Natriuretic Peptide Total Protein Albumin 05/25/18 05/26/18 05/26/18 15:31 00:39 07:16 Sodium 140 139 Potassium 3.7 3.9 Chloride 104 104 Carbon Dioxide 27.2 23.9 Anion Gap 9 11 BUN 28 H 34 H Creatinine 0.85 0.97 Estimated GFR Greater than 89 77 L Random Glucose 104 117 H Calcium 8.2 L D 8.2 L Magnesium 2.3 Total Bilirubin 0.6 AST 19 ALT 21 Alkaline Phosphatase 55 Total Creatine Kinase Troponin I C-Reactive Protein B-Natriuretic Peptide 1462 H Total Protein 6.2 L D Albumin 2.9 L D 05/26/18 05/27/18 07:16 06:29 Sodium 139 Potassium 3.4 L Chloride 100 Carbon Dioxide 30.1 Anion Gap 9 BUN 30 H Creatinine 0.87 Estimated GFR 87 L Random Glucose 98 Calcium 8.3 L Magnesium Total Bilirubin AST ALT Alkaline Phosphatase Total Creatine Kinase Troponin I C-Reactive Protein B-Natriuretic Peptide 2052 H Total Protein Albumin Imaging: ITS Impressions Chest X-Ray 05/24/18 22:40 CONCLUSION: Cardiomegaly. Prominent interstitium which may represent some pulmonary venous hypertension or mild edema. Patchy alveolar density representing consolidation or atelectasis at the right base. Abdomen/Bladder Ultrasound 05/25/18 00:00 CONCLUSION: 1. 2.1 cm left mid renal pole cyst. 2. Otherwise, unremarkable renal ultrasound examination. 3. Specifically, no sonographic evidence for obstructive uropathy. Abdomen X-Ray 05/26/18 13:10 CONCLUSION: 1. Findings consistent with partial small bowel obstruction versus at least moderate adynamic ileus. 2. Moderate gaseous distention of the stomach. Patient may benefit from NG tube decompression. Physical Exam: GENERAL: awake and alert, not in respiratory distress. SKIN: Cool and dry. No generalized rash. HEAD: Atraumatic. Normocephalic. No temporal wasting, or tenderness. EYES: [place] conjunctiva. No petechia or hemorrhage. No scleral icterus. No injection or drainage. EARS, NOSE AND THROAT: Mucous membranes pink and moist. No oral lesions noted. NECK: Trachea midline. Supple and not tender, no meningeal signs CARDIOVASCULAR: Regular rate and rhythm. No murmurs, rubs or gallops heard RESPIRATORY: Breath sounds equal bilaterally. Decreased at bases. No rales, wheezing or rhonchi ABDOMEN: Soft, not distended, has mild diffuse tenderness, no guarding or rebound. No organomegaly GENITOURINARY: Dinh cath in place, with cloudy urine, the glans penis has a linear opening or slit on left side with some drainage, exposed urethral mucosa MUSCULOSKELETAL: No cyanosis, or edema. No joint effusion, has good ROM. No calf tenderness. Well perfused and warm. NEUROLOGICAL: Awake and alert. Cranial nerves grossly intact. Motor grossly within normal limits. PSYCHIATRIC: calm and cooperative. LINE: No evidence of infection Assessment and Plan - Plan Impression UTI, patient with dinh - has what looks like eroded glans creating a large opening due to dinh Chronic dinh, for ? Some infiltrates on CXR, clinically does not have S/sxs of PNA Renal insufficiency Recommendation Continue IV Cefepime If PSAE sensitive to Cipro , change to po Cipro 750 BID x 14 days Get records from his urologist - Dr Hoyos in [place] Clinically stable from ID standpoint D/W Dr Arreola ([facility])
[2018-05-27] MEDS ORDERED: Chlorhexidine Gluconate 2% 1 Pack (2 Cloths) TOPICAL ONE (11:33)
[2018-05-27] MEDS ORDERED: Metoprolol Tartrate 25 MG Tablet PO ONE (11:33)
[2018-05-27] MEDS ORDERED: Sodium Chlor 0.9% Inj 500 ML IV.SIG SCH (12:00)
[2018-05-27] MEDS ORDERED: Ketamine Inj 50 MG/5 ML Syringe IV.PUSH ONE (12:46)
--- NOTE | 2018-05-27 16:09 | P.PCN ---
Date of procedure: 05/27/18 Pre-op diagnosis: Nausea and vomiting Procedure: PROCEDURE PERFORMED EGD with biopsy PROCEDURE: The procedure, risks and benefits were discussed with Patient/POA and informed consent was obtained. Anesthesia sedated Patient with Diprivan. Patient was placed in the left lateral decubitus position. EGD: The Pentax videoscope was introduced through the oropharynx and advanced to the second portion of the duodenum under direct visualization. Retroflexion was performed in the stomach. FINDINGS: The esophagus patient had friable erythemic mucosa from top to bottom severe esophagitis etiology unclear this was biopsied The stomach there was a large hiatal hernia there is also patchy erythema in the gastric body and antrum there was also a medium-sized fairly deep clean- based ulcer in the lesser curve closer to the antrum no visible vessel this was biopsied from the edges otherwise the rest of the stomach was unremarkable The duodenum this was normal ESTIMATED BLOOD LOSS: None SPECIMENS REMOVED: Esophageal and gastric biopsies COMPLICATIONS: None IMPRESSION: Severe esophagitis Large hiatal hernia Gastritis with gastric ulceration PLAN: Await biopsies Avoid NSAIDs and aspirin Monitor labs and transfuse if needed Recommend pantoprazole 40 mg twice daily Advance diet as tolerated Follow-up with GI post discharge EGD in 2 months Anesthesia: MAC Surgeon: Kevin Hendricks Condition: stable Disposition: floor
--- NOTE | 2018-05-27 17:25 | P.PNIM ---
Subjective Interval history: Patient seen earlier on his way for endoscopy. He reports he is feeling okay. Denies abdominal pain. No nausea or vomiting. Physical Exam Vital signs: Vital Signs 05/26/18 20:00 05/27/18 00:00 05/27/18 04:00 Temperature 97.6 F 97.8 F 97.3 F L Pulse Rate 75 54 L 54 L Respiratory Rate 18 18 18 Blood Pressure 127/86 134/62 99/56 L Pulse Oximetry 97 99 97 05/27/18 04:48 05/27/18 08:00 05/27/18 11:25 Temperature 97.9 F Pulse Rate 44 L Respiratory Rate 20 Blood Pressure 143/70 H Pulse Oximetry 99 96 95 05/27/18 11:45 05/27/18 13:20 05/27/18 16:00 Temperature 97.8 F 97.0 F L 97.1 F L Pulse Rate 41 L 44 L 38 L Respiratory Rate 20 18 21 Blood Pressure 125/58 L 124/56 L 142/67 H Pulse Oximetry 96 98 Intake & Output 05/26/18 05/27/18 05/27/18 18:59 06:59 18:59 Intake Total 100 / 100 100 / 100 400 / 400 Output Total 2100 / 2100 600 / 600 Balance 100 / 100 -2000 / -2000 -200 / -200 Weight 94.5 kg Intake: IV 100 / 100 100 / 100 200 / 200 Maxipime Inj 2,000 MG In NS Inj 100 / 100 100 / 100 100 ML @ 200 mls/hr IV.SIG Q12H [facility] Rx#:[id number] LR 1000 mL Inj 1,000 ML @ 30 200 / 200 mls/hr IV.SIG .Q24H [facility] Rx#: [id number] Anesthesia Amount 200 / 200 Output: Urine 2100 / 2100 600 / 600 Narrative: GENERAL: Patient appears older than stated age. No acute distress CARDIOVASCULAR: Normal rate and regular rhythm without murmurs, gallops, or rubs. RESPIRATORY: Good respiratory efforts. Breath sounds equal and clear to auscultation bilaterally. GASTROINTESTINAL: Abdomen soft, non-tender, non-distended. Hypoactive bowel sounds MUSCULOSKELETAL: Extremities without cyanosis, or edema. NEURO: Alert & Oriented x4 to person, place, time, situation. Moves all ext x4 PSYCH: Appropriate mood and affect. - Urinary Catheter Management Indwelling Urethral Catheter Cath placed during this visit: yes Reason for continuing: Chronic Urinary Retention Insertion date: 05/24/18 Insertion time: 22:30 Results - Labs CBC & Chem 7: 05/27/18 06:29 05/27/18 06:29 Laboratory Results - last 24 hr 05/25/18 05/26/18 05/27/18 15:31 20:42 06:29 WBC 14.5 H RBC 4.14 L Hgb 14.3 12.9 L Hct 43.3 38.9 L MCV 93.9 MCH 31.2 MCHC 33.3 RDW 14.3 Plt Count 204 MPV 9.1 Sodium Potassium Chloride Carbon Dioxide Anion Gap BUN Creatinine Estimated GFR Random Glucose Calcium M. pneumoniae Interp . Mycoplasma pneumon IgG Positive Mycoplasma pneumon IgM Negative 05/27/18 06:29 WBC RBC Hgb Hct MCV MCH MCHC RDW Plt Count MPV Sodium 139 Potassium 3.4 L Chloride 100 Carbon Dioxide 30.1 Anion Gap 9 BUN 30 H Creatinine 0.87 Estimated GFR 87 L Random Glucose 98 Calcium 8.3 L M. pneumoniae Interp Mycoplasma pneumon IgG Mycoplasma pneumon IgM Microbiology 05/26/18 00:51 Throat Group A Streptococcus Screen/Cult - Preliminary No Beta Streptococci isolated at 24 hours 05/24/18 18:15 Blood - Peripheral Aerobic Blood Culture - Preliminary No growth in 3 days 05/24/18 18:15 Blood - Peripheral Anaerobic Blood Culture - Preliminary No growth in 3 days 05/24/18 18:10 Blood - Peripheral Aerobic Blood Culture - Preliminary No growth in 3 days 05/24/18 18:10 Blood - Peripheral Anaerobic Blood Culture - Preliminary No growth in 3 days 05/24/18 22:35 Catheterized Urine Urine Culture - Preliminary Pseudomonas species Assessment and Plan - Plan 68 Y/O male with: Sepsis secondary to UTI: - Patient has indwelling dinh that was obstructed. Catheter changed. Appreciate Urology following - ID following. Continue Cefepime and follow cultures. Acute on chronic systolic CHF: -Appreciate cardiology following. Discussed with Dr. Basilio. Patient needs to be on optimal heart failure therapy. Unfortunately he has not been compliant. -Continue aspirin, lisinopril. Coreg discontinued due to bradycardia. - Reported EF of 30% -Lasix 40 mg IV twice daily. Dark emesis on 05/26/18: - Highly concern for GI bleeding -Appreciate GI following -Continue Protonix IV. EGD today. - Hold Heparin he has been getting for DVT prophylaxis. Discussed with GI nurse practitioner. Acute kidney injury: Secondary to obstruction. Resolved since obstruction relieved by replacement of Dinh. GI prophylaxis: PPI. DVT PPx: Heparin on hold due to concern for GI bleeding.
--- NOTE | 2018-05-27 19:32 | P.PNCA ---
Subjective Interval history: No events overnight For EGD today Medications and Allergies Active Medications: Active Medications Acetaminophen (Tylenol) 650 mg PO Q4H PRN PRN Reason: Temp > 100.4 Al Hydroxide/Mg Hydroxide (Milk Of Magnesia Liq) 30 ml PO Q12H PRN PRN Reason: Mild Constipation Aspirin (Aspirin Chew) 81 mg PO DAILY [facility] Last Admin: 05/27/18 10:41 Dose: 81 mg Atorvastatin Calcium (Lipitor) 20 mg PO DAILY [facility] Last Admin: 05/27/18 10:41 Dose: 20 mg Bisacodyl (Dulcolax Supp) 10 mg RECTAL DAILY PRN PRN Reason: SEVERE CONSITIPATION Furosemide (Lasix Inj) 40 mg IV.PUSH BID@0900,1800 [facility] Last Admin: 05/27/18 17:39 Dose: 40 mg Heparin Sodium (Porcine) (Heparin Inj) 5,000 units SQ Q8H [facility] Last Admin: 05/26/18 06:06 Dose: 5,000 units Cefepime HCl 2,000 mg/ Sodium (Chloride) 100 mls @ 200 mls/hr IV.SIG Q12H [facility] Last Infusion: 05/27/18 01:07 Dose: Infused Lactated Ringer's (Lr 1000 Ml Inj) 1,000 mls @ 30 mls/hr IV.SIG .Q24H [facility] Stop: 05/28/18 11:44 Last Infusion: 05/27/18 13:35 Dose: Infused Sodium Chloride (Ns Inj) 500 mls @ 30 mls/hr IV.SIG .Q10H [facility] Last Admin: 05/27/18 19:26 Dose: Not Given Lactulose (Lactulose Liq) 30 ml PO DAILY PRN PRN Reason: SEVERE CONSITIPATION Lisinopril (Prinivil) 10 mg PO DAILY [facility] Last Admin: 05/27/18 10:41 Dose: 10 mg Ondansetron HCl (Zofran Inj) 4 mg IV.PUSH Q6H PRN PRN Reason: NAUSEA OR VOMITING Last Admin: 05/26/18 00:40 Dose: 4 mg Pantoprazole Sodium (Protonix Inj) 40 mg IV.PUSH Q12H [facility] Last Admin: 05/27/18 17:39 Dose: 40 mg Senna/Docusate Sodium (Nadine-Colace) 1 tab PO BID [facility] Last Admin: 05/27/18 10:42 Dose: 1 tab Sennosides (Senokot) 17.2 mg PO Q12H PRN PRN Reason: Moderate Constipation Allergies Allergy/AdvReac Type Severity Reaction Status Date / Time No Known Allergies Allergy Verified 05/24/18 16:21 Home Medications Medication Instructions Recorded Confirmed Type aspirin 81 mg PO DAILY 05/24/18 05/24/18 History atorvastatin 20 mg PO DAILY 05/24/18 05/24/18 History furosemide 20 mg PO DAILY 05/24/18 05/24/18 History lisinopril 10 mg PO DAILY 05/24/18 05/24/18 History Physical Exam Vital signs: Vital Signs 05/26/18 20:00 05/27/18 00:00 05/27/18 04:00 Temperature 97.6 F 97.8 F 97.3 F L Pulse Rate 75 54 L 54 L Respiratory Rate 18 18 18 Blood Pressure 127/86 134/62 99/56 L Pulse Oximetry 97 99 97 05/27/18 04:48 05/27/18 08:00 05/27/18 11:25 Temperature 97.9 F Pulse Rate 44 L Respiratory Rate 20 Blood Pressure 143/70 H Pulse Oximetry 99 96 95 05/27/18 11:45 05/27/18 13:20 05/27/18 16:00 Temperature 97.8 F 97.0 F L 97.1 F L Pulse Rate 41 L 44 L 38 L Respiratory Rate 20 18 21 Blood Pressure 125/58 L 124/56 L 142/67 H Pulse Oximetry 96 98 05/27/18 17:39 Temperature Pulse Rate Respiratory Rate Blood Pressure Pulse Oximetry 98 Intake & Output 05/27/18 05/27/18 05/28/18 06:59 18:59 06:59 Intake Total 100 / 100 860 / 860 Output Total 2100 / 2100 600 / 600 Balance -1999 / -1999 260 / 260 Weight 94.5 kg Intake: IV 100 / 100 200 / 200 Maxipime Inj 2,000 MG In NS Inj 100 / 100 100 ML @ 200 mls/hr IV.SIG Q12H [facility] Rx#:[id number] LR 1000 mL Inj 1,000 ML @ 30 200 / 200 mls/hr IV.SIG .Q24H [facility] Rx#: [id number] Oral 460 / 460 Anesthesia Amount 200 / 200 Output: Urine 2100 / 2100 600 / 600 Other: # Voids 4 Narrative: GENERAL: Patient appears older than stated age. No acute distress CARDIOVASCULAR: Normal rate and regular rhythm without murmurs, gallops, or rubs. RESPIRATORY: Good respiratory efforts. Breath sounds equal and clear to auscultation bilaterally. GASTROINTESTINAL: Abdomen soft, non-tender, non-distended. Hypoactive bowel sounds MUSCULOSKELETAL: Extremities without cyanosis, or edema. NEURO: Alert & Oriented x4 to person, place, time, situation. Moves all ext x4 PSYCH: Appropriate mood and affect. - Urinary Catheter Management Indwelling Urethral Catheter Cath placed during this visit: yes Reason for continuing: Chronic Urinary Retention Insertion date: 05/24/18 Insertion time: 22:30 Results 05/27/18 06:29 05/27/18 06:29 Cardiac Enzymes 05/26/18 05/26/18 Range/Units 07:16 07:16 AST 19 (15-37) U/L B-Natriuretic Peptide 2052 H (0-100) pg/mL Coagulation 05/26/18 Range/Units 07:16 B-Natriuretic Peptide 2052 H (0-100) pg/mL CBC 05/26/18 05/26/18 05/27/18 Range/Units 07:16 20:42 06:29 WBC 13.8 H 14.5 H (4.0-11.0) th/mm3 RBC 4.11 L 4.14 L (4.50-5.90) mil/mm3 Hgb 12.8 L D 14.3 12.9 L (13.0-17.0) gm/dL Hct 39.0 43.3 38.9 L (39.0-51.0) % Plt Count 204 204 (150-450) th/mm3 Neut # (Auto) 12.2 H (1.8-7.7) th/mm3 Lymph # (Auto) 0.6 L (1.0-4.8) th/mm3 [place] # (Auto) 1.0 H (0.0-0.9) th/mm3 Eos # (Auto) 0.0 (0.0-0.4) th/mm3 Baso # (Auto) 0.0 (0.0-0.2) th/mm3 Comprehensive Metabolic Panel 05/26/18 05/26/18 05/27/18 Range/Units 00:39 07:16 06:29 Sodium 140 139 139 (136-145) meq/L Potassium 3.7 3.9 3.4 L (3.5-5.1) meq/L Chloride 104 104 100 (98-107) meq/L Carbon Dioxide 27.2 23.9 30.1 (21.0-32.0) meq/L BUN 28 H 34 H 30 H (7-18) mg/dL Creatinine 0.85 0.97 0.87 (0.60-1.30) mg/dL Calcium 8.2 L D 8.2 L 8.3 L (8.5-10.1) mg/dL AST 19 (15-37) U/L ALT 21 (12-78) U/L Alkaline Phosphatase 55 (45-117) U/L Total Protein 6.2 L D (6.4-8.2) g/dL Albumin 2.9 L D (3.4-5.0) g/dL Intake and Output 05/27/18 05/27/18 05/27/18 06:59 14:59 22:59 Intake Total 100 / 100 400 / 400 460 / 460 Output Total 2100 / 2100 600 / 600 Balance -1999 / -2000 -200 / -200 460 / 460 Intake: IV 100 / 100 200 / 200 Maxipime Inj 2,000 MG In NS Inj 100 / 100 100 ML @ 200 mls/hr IV.SIG Q12H [facility] Rx#:[id number] LR 1000 mL Inj 1,000 ML @ 30 200 / 200 mls/hr IV.SIG .Q24H [facility] Rx#: [id number] Oral 460 / 460 Anesthesia Amount 200 / 200 Output: Urine 2100 / 2100 600 / 600 Other: # Voids 4 Weight 94.5 kg - Imaging and Cardiology Imaging: Impressions Abdomen X-Ray 05/26/18 13:10 CONCLUSION: 1. Findings consistent with partial small bowel obstruction versus at least moderate adynamic ileus. 2. Moderate gaseous distention of the stomach. Patient may benefit from NG tube decompression. Assessment and Plan - Assessment (1) Elevated troponin Code(s): R74.8 - Abnormal levels of other serum enzymes Status: Acute (2) Chronic CHF Code(s): I50.9 - Heart failure, unspecified Status: Acute (3) Acute UTI Code(s): N39.0 - Urinary tract infection, site not specified Status: Acute (4) Acute retention of urine Code(s): R33.8 - Other retention of urine Status: Acute (5) Sepsis Code(s): A41.9 - Sepsis, unspecified organism Status: Acute - Plan 1) UTI with clogged Jimenez catheter 2) Elevated lactic acid 3) Minimally elevated troponin Type 2 in nature due to lactic acidosis/sepsis as well as acute systolic heart failure due to urinary obstruction 4) Acute on chronic systolic heart failure Diuresed well Appears well compensated now as he lays in bed comfortably 5) Pre-operative risk assessment for GI procedure No signs of ACS, compensated from heart failure standpoint, hemodynamically stable May proceed as an intermediate risk 6) Not a candidate for ICD therapy as he has not been on optimal medical therapy Con't on Lisinopril BB stopped due to bradycardia 7) If concerns over the weekend please call the service for the covering physician (5) Sepsis Qualifiers: Sepsis type: sepsis due to unspecified organism Qualified Code(s): A41.9 - Sepsis, unspecified organism
[2018-05-28 04:54] LABS: Hematocrit 39.9 % (39.0-51.0); Hemoglobin 13.6 gm/dL (13.0-17.0); Mean Corpuscular Hemoglobin 31.4 pg (27.0-34.0); Mean Corpuscular Volume 92.3 fL (80.0-100.0); Mean Platelet Volume 9.6 fL (7.0-11.0); Platelet Count 206 th/mm3 (150-450); Red Blood Count 4.32 mil/mm3 (4.50-5.90); Red Cell Distribution Width 14.3 % (11.6-17.2); White Blood Count 11.3 th/mm3 (4.0-11.0)
[2018-05-28 05:23] LABS: Alanine Aminotransferase 22 U/L (12-78); Albumin 2.6 g/dL (3.4-5.0); Anion Gap 8 meq/L (5-15); Aspartate Aminotransferase 16 U/L (15-37); Blood Urea Nitrogen 25 mg/dL (7-18); Carbon Dioxide 33.4 meq/L (21.0-32.0); Chloride 97 meq/L (98-107); Glomerular Filtration Rate 88 mL/min (>89); Glucose,Random 96 mg/dL (74-106); Potassium 3.2 meq/L (3.5-5.1); Sodium 138 meq/L (136-145)
[2018-05-28 05:25] LABS: Alkaline Phosphatase 53 U/L (45-117); Total Protein 6.2 g/dL (6.4-8.2)
[2018-05-28] MEDS: Pantoprazole Inj 40 MG Vial IV.PUSH SCH (05:42)
[2018-05-28] MEDS: Lisinopril 10 MG Tablet PO SCH (08:19)
[2018-05-28] MEDS: Senna/Docusate Sodium 8.6/50 MG Tablet PO SCH ×2 (08:19→21:32)
--- NOTE | 2018-05-28 13:46 | P.DCO ---
- Diagnosis (1) Acute systolic (congestive) heart failure Status: Acute (2) Acute UTI Status: Acute (3) Acute retention of urine Status: Acute (4) Sepsis Status: Acute (5) Elevated troponin Status: Acute - Physical Therapy Order: Evaluate and treat, Improve ambulation, Strength and gait training - Home Health Nursing Order: Medical education, Signs/symptoms of disease process, CHF education, Nursing assessment with vital signs - Case Management Consult Yes - Certification I have seen patient Cl[place]is [place] SR on 05/28/18. My clinical findings support the need for the requested home health care services because: Limited mobility due to disease progression, Limited ability to care for self I certify that my clinical findings support that this patient is homebound because: Poor cardiac reserve (4) Sepsis Qualifiers: Sepsis type: sepsis due to unspecified organism Qualified Code(s): A41.9 - Sepsis, unspecified organism
--- NOTE | 2018-05-28 14:01 | P.PNIM ---
Subjective Interval history: Patient reports he is feeling okay today except for generalized weakness. He is having episodes of bradycardia down to the high 30s. He denies any chest pain or shortness of breath. Physical Exam Vital signs: Vital Signs 05/27/18 16:00 05/27/18 17:39 05/27/18 20:00 Temperature 97.1 F L 97.6 F Pulse Rate 54 L 71 Respiratory Rate 21 18 Blood Pressure 142/67 H 160/69 H Pulse Oximetry 98 98 99 05/28/18 00:00 05/28/18 01:01 05/28/18 04:00 Temperature 97.4 F L Pulse Rate 84 42 L 60 Respiratory Rate 16 Blood Pressure 114/62 Pulse Oximetry 97 05/28/18 04:03 05/28/18 08:00 05/28/18 12:00 Temperature 97.2 F L 97.4 F L 97.3 F L Pulse Rate 47 L 32 L 38 L Respiratory Rate 16 18 18 Blood Pressure 128/73 124/62 105/71 Pulse Oximetry 94 L 96 96 Intake & Output 05/27/18 05/28/18 05/28/18 18:59 06:59 18:59 Intake Total 960 / 960 100 / 100 Output Total 600 / 600 1240 / 1240 Balance 360 / 360 -1140 / -1140 Weight 94.3 kg Intake: IV 300 / 300 100 / 100 Maxipime Inj 2,000 MG In NS Inj 100 / 100 100 / 100 100 ML @ 200 mls/hr IV.SIG Q12H [facility] Rx#:[id number] LR 1000 mL Inj 1,000 ML @ 30 200 / 200 mls/hr IV.SIG .Q24H [facility] Rx#: [id number] Oral 460 / 460 Anesthesia Amount 200 / 200 Output: Urine 600 / 600 1240 / 1240 Other: # Voids 4 Narrative: GENERAL: Patient appears older than stated age. No acute distress CARDIOVASCULAR: Normal rate and regular rhythm without murmurs, gallops, or rubs. RESPIRATORY: Good respiratory efforts. Breath sounds equal and clear to auscultation bilaterally. GASTROINTESTINAL: Abdomen soft, non-tender, non-distended. Hypoactive bowel sounds MUSCULOSKELETAL: Extremities without cyanosis, or edema. NEURO: Alert & Oriented x4 to person, place, time, situation. Moves all ext x4 PSYCH: Appropriate mood and affect. - Urinary Catheter Management Indwelling Urethral Catheter Cath placed during this visit: yes Reason for continuing: Acute urinary retention Insertion date: 05/24/18 Insertion time: 22:30 Results - Labs CBC & Chem 7: 05/28/18 03:55 05/28/18 03:55 Laboratory Results - last 24 hr 05/25/18 05/28/18 05/28/18 15:31 03:55 03:55 WBC 11.3 H RBC 4.32 L Hgb 13.6 Hct 39.9 MCV 92.3 MCH 31.4 MCHC 34.0 RDW 14.3 Plt Count 206 MPV 9.6 Sodium 138 Potassium 3.2 L Chloride 97 L Carbon Dioxide 33.4 H Anion Gap 8 BUN 25 H Creatinine 0.86 Estimated GFR 88 L Random Glucose 96 Calcium 8.0 L Total Bilirubin 0.7 AST 16 ALT 22 Alkaline Phosphatase 53 Total Protein 6.2 L Albumin 2.6 L M. pneumoniae Interp . Mycoplasma pneumon IgG Positive Mycoplasma pneumon IgM Negative Microbiology 05/26/18 00:51 Throat Group A Streptococcus Screen/Cult - Final No Beta Streptococci isolated. 05/24/18 18:15 Blood - Peripheral Aerobic Blood Culture - Preliminary No growth in 4 days 05/24/18 18:15 Blood - Peripheral Anaerobic Blood Culture - Preliminary No growth in 4 days 05/24/18 18:10 Blood - Peripheral Aerobic Blood Culture - Preliminary No growth in 4 days 05/24/18 18:10 Blood - Peripheral Anaerobic Blood Culture - Preliminary No growth in 4 days 05/24/18 22:35 Catheterized Urine Urine Culture - Final Pseudomonas aeruginosa Assessment and Plan - Assessment (1) Acute systolic (congestive) heart failure Code(s): I50.21 - Acute systolic (congestive) heart failure Status: Acute (2) Acute UTI Code(s): N39.0 - Urinary tract infection, site not specified Status: Acute (3) Acute retention of urine Code(s): R33.8 - Other retention of urine Status: Acute (4) Sepsis Code(s): A41.9 - Sepsis, unspecified organism Status: Acute (5) Elevated troponin Code(s): R74.8 - Abnormal levels of other serum enzymes Status: Acute - Plan 68 Y/O male with: Sepsis secondary to UTI: - Patient has indwelling dinh that was obstructed. Catheter changed. Appreciate Urology following - ID following. Culture grew Pseudomonas that is pansensitive. Per ID recommendations, transition to Cipro 750 mg twice daily for 14 days. Acute on chronic systolic CHF/bradycardia: -Appreciate cardiology following. Patient needs to be on optimal heart failure therapy. Unfortunately he has not been compliant. -Continue aspirin, lisinopril. Coreg has been discontinued but he is still bradycardic -Appreciate further input from cardiology regarding bradycardia. We will obtain a 12-lead EKG. - Reported EF of 30% -Has been on Lasix 40 mg IV twice daily. Will transition to Lasix 40 mg p.o. daily. Dark emesis on 05/26/18: Resolved - Highly concern for GI bleeding -Appreciate GI following -EGD on 05/27/18 revealed severe esophagitis, large hiatal hernia, gastric ulceration. - Continue Protonix 40 mg twice daily. Acute kidney injury: Secondary to obstruction. Resolved since obstruction relieved by replacement of Dinh. GI prophylaxis: PPI. DVT PPx: Heparin on hold due to concern for GI bleeding. Discharge Planning: Needs to be more stable from a cardiac standpoint. Will consider discharge tomorrow. Will need home health. (4) Sepsis Qualifiers: Sepsis type: sepsis due to unspecified organism Qualified Code(s): A41.9 - Sepsis, unspecified organism
--- NOTE | 2018-05-28 16:06 | P.PNGI ---
Subjective Interval history: Patient is resting in the bed awakens and answers questions appropriately states that he is hungry and tolerating clear liquids without any nausea or vomiting Patient is status post EGD with large hiatal hernia and severe esophagitis explained findings to patient No abdominal pain no diarrhea hemoglobin stable Physical Exam Vital signs: Vital Signs 05/27/18 17:39 05/27/18 20:00 05/28/18 00:00 Temperature 97.6 F Pulse Rate 71 84 Respiratory Rate 18 Blood Pressure 160/69 H Pulse Oximetry 98 99 05/28/18 01:01 05/28/18 04:00 05/28/18 04:03 Temperature 97.4 F L 97.2 F L Pulse Rate 42 L 60 47 L Respiratory Rate 16 16 Blood Pressure 114/62 128/73 Pulse Oximetry 97 94 L 05/28/18 08:00 05/28/18 12:00 Temperature 97.4 F L 97.3 F L Pulse Rate 32 L 38 L Respiratory Rate 18 18 Blood Pressure 124/62 105/71 Pulse Oximetry 96 96 Intake & Output 05/27/18 05/28/18 05/28/18 18:59 06:59 18:59 Intake Total 960 / 960 100 / 100 Output Total 600 / 600 1240 / 1240 Balance 360 / 360 -1140 / -1140 Weight 94.3 kg Intake: IV 300 / 300 100 / 100 Maxipime Inj 2,000 MG In NS Inj 100 / 100 100 / 100 100 ML @ 200 mls/hr IV.SIG Q12H ЕЛЕНА Rx#:[id number] LR 1000 mL Inj 1,000 ML @ 30 200 / 200 mls/hr IV.SIG .Q24H ЕЛЕНА Rx#: [id number] Oral 460 / 460 Anesthesia Amount 200 / 200 Output: Urine 600 / 600 1240 / 1240 Other: # Voids 4 - Constitutional no acute distress, morbidly obese, cooperative - Routine HEENT Exam ENT: Present: mucous membranes moist - Routine Respiratory Exam Present: accessory muscle use - Routine Abdominal Exam Present: soft, normoactive bowel sounds (No abdominal pain) - Urinary Catheter Management Indwelling Urethral Catheter Cath placed during this visit: yes Reason for continuing: Acute urinary retention Insertion date: 05/24/18 Insertion time: 22:30 Results - Labs CBC & Chem 7: 05/28/18 03:55 05/28/18 03:55 Laboratory Results - last 24 hr 05/28/18 05/28/18 05/28/18 03:55 03:55 08:35 WBC 11.3 H RBC 4.32 L Hgb 13.6 Hct 39.9 MCV 92.3 MCH 31.4 MCHC 34.0 RDW 14.3 Plt Count 206 MPV 9.6 Sodium 138 Potassium 3.2 L Chloride 97 L Carbon Dioxide 33.4 H Anion Gap 8 BUN 25 H Creatinine 0.86 Estimated GFR 88 L Random Glucose 96 Calcium 8.0 L Total Bilirubin 0.7 AST 16 ALT 22 Alkaline Phosphatase 53 B-Natriuretic Peptide 1419 H Total Protein 6.2 L Albumin 2.6 L Microbiology 05/26/18 00:51 Throat Group A Streptococcus Screen/Cult - Final No Beta Streptococci isolated. 05/24/18 18:15 Blood - Peripheral Aerobic Blood Culture - Preliminary No growth in 4 days 05/24/18 18:15 Blood - Peripheral Anaerobic Blood Culture - Preliminary No growth in 4 days 05/24/18 18:10 Blood - Peripheral Aerobic Blood Culture - Preliminary No growth in 4 days 05/24/18 18:10 Blood - Peripheral Anaerobic Blood Culture - Preliminary No growth in 4 days 05/24/18 22:35 Catheterized Urine Urine Culture - Final Pseudomonas aeruginosa Assessment and Plan - Plan - Intractable nausea and vomiting x 2 days, per primary team noticing dark emesis with downward trending hgb States he can not keep anything down. Denies any hematemesis but does state that is is very dark in color. Denies any associated abdominal pain. Does report some heartburn on Wednesday that he took Tums for with good relief, otherwise denies frequent heartburn. Did have issues with heartburn years ago and was taking Tums around the clock at that time. He can not recall when his last BM was but denies any melena or hematochezia. Does report passing flatus. Pt denies any known ingestion of suspicious foods, sick contacts and recent travel. Denies previous EGD. Had a colonoscopy in 2001 in [facility] and reports findings of 27 polyps. Pt actively vomiting during my exam, appears to be more of a feces color and not really coffee ground emesis. - Elevated troponin, BNP- cardiology following- noted to be not secondary to NSTEMI or ACS and most likely due to acute systolic heart failure secondary to urinary obstruction. - Chronic indwelling urinary catheter, presented with obstruction, now resolved. 05/28/2018 patient is status post EGD performed on 05/27/2018 findings include severe esophagitis Large hiatal hernia Gastritis with gastric ulceration. Results again explained to patient and any questions answered. EGD will need to be repeated for evaluation in 2 months Patient denies any nausea or vomiting and states he is hungry. Discussed increasing diet today to soft foods, no spicy greasy foods. Patient agreed patient is hoping to go home soon with his daughter. Dependent on patient's symptoms and ability to tolerate food and hydration, patient should be getting close to use stabilization and discharge, will need to follow-up in the office for evaluation in 2-4 weeks PLAN: Diet cardiac, soft foods biopsies pending Avoid NSAIDs, aspirin Protonix 40 mg twice daily Monitor labs , stable hemoglobin mildly increased today at 13.6 no obvious bleeding Follow-up EGD in 2 months Supportive care Patient was seen per myself and Dr. Rosas, note was written on his behalf
--- NOTE | 2018-05-28 23:40 | ECG ---
Date Performed: 05/28/2018 Time Performed: 14:06:29 PTAGE: 68 years EKG: ATRIAL FIBRILLATION WITH ABERRANT CONDUCTION OR VENTRICULAR PREMATURE COMPLEXES MARKED LEFT AXIS DEVIATION INTRAVENTRICULAR CONDUCTION DELAY MODERATE VOLTAGE CRITERIA FOR LVH, CONSIDER NORMAL VARIANT POSSIBLE ANTEROSEPTAL MYOCARDIAL INFARCTION , OF INDETERMINATE AGE ABNORMAL ECG PREVIOUS TRACING : 05/25/2018 11.25 Compared to previous tracing, Atrial Fibrillation is new DOCTOR: Hermilo Ahumada Interpretating Date/Time 05/28/2018 23:39:07
[2018-05-29 07:22] LABS: Hematocrit 43.3 % (39.0-51.0); Hemoglobin 14.5 gm/dL (13.0-17.0); Mean Corpuscular HGB Conc 33.6 % (32.0-36.0); Mean Corpuscular Hemoglobin 31.7 pg (27.0-34.0); Mean Corpuscular Volume 94.5 fL (80.0-100.0); Mean Platelet Volume 9.3 fL (7.0-11.0); Platelet Count 213 th/mm3 (150-450); Red Blood Count 4.58 mil/mm3 (4.50-5.90); Red Cell Distribution Width 14.1 % (11.6-17.2); White Blood Count 10.6 th/mm3 (4.0-11.0)
[2018-05-29 07:46] LABS: Carbon Dioxide 31.5 meq/L (21.0-32.0); Potassium 3.7 meq/L (3.5-5.1)
[2018-05-29] MEDS: Senna/Docusate Sodium 8.6/50 MG Tablet PO SCH ×2 (09:26→21:41)
[2018-05-29] MEDS: Lisinopril 10 MG Tablet PO SCH (09:27)
[2018-05-29] MEDS: Furosemide 40 MG Tablet PO SCH (09:27)
--- NOTE | 2018-05-29 11:47 | P.PNGI ---
Subjective Interval history: Resting in the bed, pale, but denies any abdominal pain nausea vomiting or epigastric pain Jimenez catheter in place Physical Exam Vital signs: Vital Signs 05/28/18 12:00 05/28/18 16:00 05/28/18 20:00 Temperature 97.3 F L 97.8 F 97.3 F L Pulse Rate 38 L 48 L 93 H Respiratory Rate 18 18 18 Blood Pressure 105/71 113/77 113/85 Pulse Oximetry 96 94 L 96 05/29/18 00:00 05/29/18 04:00 05/29/18 04:16 Temperature 97.8 F 97.3 F L Pulse Rate 96 H 59 L Respiratory Rate 18 20 Blood Pressure 126/65 112/66 Pulse Oximetry 96 94 L 96 05/29/18 08:00 Temperature 97.5 F L Pulse Rate 86 Respiratory Rate 18 Blood Pressure 136/74 Pulse Oximetry 96 Intake & Output 05/28/18 05/29/18 05/29/18 18:59 06:59 18:59 Intake Total 1040 / 1040 442 / 442 360 / 360 Output Total 350 / 350 800 / 800 Balance 690 / 690 -358 / -358 360 / 360 Weight 83.7 kg Intake: Oral 1040 / 1040 442 / 442 360 / 360 Output: Urine 800 / 800 Urine Amount (Catheter) 350 / 350 Indwelling Urethral Catheter 350 / 350 Other: # Voids 1 - Constitutional no acute distress, obese (But answer simple questions), chronically ill appearing, disheveled - Routine HEENT Exam Head: Present: normocephalic ENT: Present: mucous membranes moist - Routine Respiratory Exam Present: accessory muscle use - Routine Cardiovascular Exam Present: S1, S2 - Routine Abdominal Exam Present: soft, normoactive bowel sounds (Round,) - Urinary Catheter Management Indwelling Urethral Catheter Cath placed during this visit: yes Reason for continuing: Chronic Urinary Retention Insertion date: 05/24/18 Insertion time: 22:30 Results - Labs CBC & Chem 7: 05/29/18 06:22 05/29/18 06:22 Laboratory Results - last 24 hr 05/28/18 05/29/18 05/29/18 08:35 06:22 06:22 WBC 10.6 RBC 4.58 Hgb 14.5 Hct 43.3 MCV 94.5 MCH 31.7 MCHC 33.6 RDW 14.1 Plt Count 213 MPV 9.3 Sodium 134 L Potassium 3.7 Chloride 95 L Carbon Dioxide 31.5 Anion Gap 8 BUN 23 H Creatinine 0.90 Estimated GFR 84 L Random Glucose 94 Calcium 8.0 L B-Natriuretic Peptide 1419 H Microbiology 05/24/18 18:15 Blood - Peripheral Aerobic Blood Culture - Final No growth in 5 days 05/24/18 18:15 Blood - Peripheral Anaerobic Blood Culture - Final No growth in 5 days 05/24/18 18:10 Blood - Peripheral Aerobic Blood Culture - Final No growth in 5 days 05/24/18 18:10 Blood - Peripheral Anaerobic Blood Culture - Final No growth in 5 days 05/26/18 00:51 Throat Group A Streptococcus Screen/Cult - Final No Beta Streptococci isolated. 05/24/18 22:35 Catheterized Urine Urine Culture - Final Pseudomonas aeruginosa Assessment and Plan - Plan - Intractable nausea and vomiting x 2 days, per primary team noticing dark emesis with downward trending hgb States he can not keep anything down. Denies any hematemesis but does state that is is very dark in color. Denies any associated abdominal pain. Does report some heartburn on Wednesday that he took Tums for with good relief, otherwise denies frequent heartburn. Did have issues with heartburn years ago and was taking Tums around the clock at that time. He can not recall when his last BM was but denies any melena or hematochezia. Does report passing flatus. Pt denies any known ingestion of suspicious foods, sick contacts and recent travel. Denies previous EGD. Had a colonoscopy in 2001 in [facility] and reports findings of 27 polyps. Pt actively vomiting during my exam, appears to be more of a feces color and not really coffee ground emesis. - Elevated troponin, BNP- cardiology following- noted to be not secondary to NSTEMI or ACS and most likely due to acute systolic heart failure secondary to urinary obstruction. - Chronic indwelling urinary catheter, presented with obstruction, now resolved. 05/28/2018 patient is status post EGD performed on 05/27/2018 findings include severe esophagitis Large hiatal hernia Gastritis with gastric ulceration. Results again explained to patient and any questions answered. EGD will need to be repeated for evaluation in 2 months Patient denies any nausea or vomiting and states he is hungry. Discussed increasing diet today to soft foods, no spicy greasy foods. Patient agreed patient is hoping to go home soon with his daughter. Dependent on patient's symptoms and ability to tolerate food and hydration, patient should be getting close to use stabilization and discharge, will need to follow-up in the office for evaluation in 2-4 weeks 05/29/2018, patient has stable GI symptoms no nausea no vomiting no abdominal pain chief complaint is right eye tearing which can be reported to hospitalist for further evaluation diet, cardiac soft without any issues. Encourage patient to be up in chair and become more mobile still has a Jimenez catheter in place which should be able to be removed. Patient is stable from a GI perspective and can be followed in the outpatient setting, post hospital stay once he is discharged in 2-4 weeks will need follow-up EGD in 2 months PLAN: Diet cardiac, soft foods encourage hydration biopsies pending Avoid NSAIDs, aspirin Protonix 40 mg twice daily Consider removal of Jimenez catheter so patient can be more mobile Follow-up EGD in 2 months Supportive care Patient was seen per myself and Dr. Sharma, note was written on his behalf
--- NOTE | 2018-05-29 12:50 | P.DS ---
Date of admission: 05/24/18 23:39 Primary care physician: PROVIDER NON STAFF Brief History from admission: HPI as documented by the admitting physician. 68-year-old male with a past medical history significant for coronary artery disease, hypertension, hyperlipidemia, CHF and urinary retention presents to the emergency department for evaluation of a Dinh catheter. The patient has an indwelling Dinh catheter that was put in 3 months ago secondary to urinary retention. The patient was evaluated by his home health care nurse today who was concerned that the catheter might be clogged. He came to the emergency department for further evaluation. The patient and his daughter are poor historians. He follows with a urologist in [facility], Dr. Anderson, who is supposed to do a procedure to alleviate obstruction at some time in the future. The patient has been living in [facility] with his daughter as he is unable to care for himself. He denies any recent fever/chills. No abdominal pain. On arrival to the emergency department. The Dinh catheter was exchanged in the emergency department with 1100 cc of urine out. The patient denies any chest pain or shortness of breath. No abdominal pain. No nausea/vomiting/diarrhea. Chronic cough which is unchanged. No lateralizing signs/symptoms. Patient update on day of discharge: Patient reports he is feeling okay today. No complaints. We discussed discharge planning at length and the need to follow-up outpatient. His daughter will be caring for him. Heart rate is better. Asymptomatic. DS: Diagnosis - Discharge Diagnosis (1) Acute systolic (congestive) heart failure Status: Acute (2) Acute UTI Status: Acute (3) Acute retention of urine Status: Acute (4) Sepsis Status: Acute (5) Elevated troponin Status: Acute DS: Medications - Discharge Medications Prescriptions: ciprofloxacin HCl 750 mg PO BID 14 Days #28 tab furosemide 40 mg PO DAILY 30 Days #60 tab pantoprazole [Protonix] 40 mg PO BID #60 tab DS: Summary Hospital Course: 68 Y/O male admitted and treated for the following: Sepsis secondary to UTI: - Patient has indwelling dinh that was obstructed. Catheter changed. Appreciate Urology following - ID following. Culture grew Pseudomonas that is pansensitive. Per ID recommendations, transition to Cipro 750 mg twice daily for 14 days. -Patient is to follow-up with his urologist outpatient and should have Dinh change every 4 weeks. Acute on chronic systolic CHF/bradycardia: -Appreciate cardiology following. Patient needs to be on optimal heart failure therapy. Unfortunately he has not been compliant. -Continue aspirin, lisinopril. Coreg has been discontinued due to bradycardia. - Reported EF of 30% -Has been on Lasix 40 mg IV twice daily. He was transitioned to oral Lasix 40 mg daily. -Continue Lasix and lisinopril. No beta-blockers for now due to bradycardia. He is advised to follow-up outpatient with cardiology. -Patient was counseled on the need to be compliant. He is discharged with home health to help with compliance. Dark emesis on 05/26/18: Resolved - Highly concern for GI bleeding -Appreciate GI following -EGD on 05/27/18 revealed severe esophagitis, large hiatal hernia, gastric ulceration. - Continue Protonix 40 mg twice daily. Acute kidney injury: Secondary to obstruction. Resolved since obstruction relieved by replacement of Dihn. - Time Spent with Patient Total time spent providing and/or coordinating discharge services: Less than 30 minutes - Quality: VTE Deep Vein Thrombosis/Pulmonary Embolism Present on Admission: No Exam Vital signs: Vital Signs 05/28/18 16:00 05/28/18 20:00 05/29/18 00:00 Temperature 97.8 F 97.3 F L 97.8 F Pulse Rate 48 L 93 H 96 H Respiratory Rate 18 18 18 Blood Pressure 113/77 113/85 126/65 Pulse Oximetry 94 L 96 96 05/29/18 04:00 05/29/18 04:16 05/29/18 08:00 Temperature 97.3 F L 97.5 F L Pulse Rate 59 L 86 Respiratory Rate 20 18 Blood Pressure 112/66 136/74 Pulse Oximetry 94 L 96 96 Intake & Output 05/28/18 05/29/18 05/29/18 18:59 06:59 18:59 Intake Total 1040 / 1040 442 / 442 360 / 360 Output Total 350 / 350 800 / 800 Balance 690 / 690 -358 / -358 360 / 360 Weight 83.7 kg Intake: Oral 1040 / 1040 442 / 442 360 / 360 Output: Urine 800 / 800 Urine Amount (Catheter) 350 / 350 Indwelling Urethral Catheter 350 / 350 Other: # Voids 1 Narrative: GENERAL: Patient appears older than stated age. No acute distress CARDIOVASCULAR: Normal rate and regular rhythm without murmurs, gallops, or rubs. RESPIRATORY: Good respiratory efforts. Breath sounds equal and clear to auscultation bilaterally. GASTROINTESTINAL: Abdomen soft, non-tender, non-distended. Hypoactive bowel sounds MUSCULOSKELETAL: Extremities without cyanosis, or edema. NEURO: Alert & Oriented x4 to person, place, time, situation. Moves all ext x4 PSYCH: Appropriate mood and affect. Results Procedures completed during hospitalization: EGD Pending studies at discharge: Pending at discharge 05/27/18 Surgical [PTH] Routine Labs on day of discharge: Labs from last 24 hours 05/29/18 05/29/18 05/28/18 06:22 06:22 08:35 WBC 10.6 RBC 4.58 Hgb 14.5 Hct 43.3 MCV 94.5 MCH 31.7 MCHC 33.6 RDW 14.1 Plt Count 213 MPV 9.3 Sodium 134 L Potassium 3.7 Chloride 95 L Carbon Dioxide 31.5 Anion Gap 8 BUN 23 H Creatinine 0.90 Estimated GFR 84 L Random Glucose 94 Calcium 8.0 L B-Natriuretic Peptide 1419 H - Impressions ITS Impressions Chest X-Ray 05/24/18 22:40 CONCLUSION: Cardiomegaly. Prominent interstitium which may represent some pulmonary venous hypertension or mild edema. Patchy alveolar density representing consolidation or atelectasis at the right base. Abdomen/Bladder Ultrasound 05/25/18 00:00 CONCLUSION: 1. 2.1 cm left mid renal pole cyst. 2. Otherwise, unremarkable renal ultrasound examination. 3. Specifically, no sonographic evidence for obstructive uropathy. Abdomen X-Ray 05/26/18 13:10 CONCLUSION: 1. Findings consistent with partial small bowel obstruction versus at least moderate adynamic ileus. 2. Moderate gaseous distention of the stomach. Patient may benefit from NG tube decompression. Discharge Plan - Discharge Disposition Patient Disposition: Disch W/Home Health Service - Discharge Condition Condition: Stable - Discharge Order Discharge Orders: Discharge Order (Routine); Ordered 05/29/18 Ordered By: Chula Arreola - Physicians Team Primary Care Provider: NON STAFF,PROVIDER Attending Provider: Chula Arreola Other Providers: Gregorio Basilio DO ; Mayra Wilkerson MD ; Cristobal Galloway MD ; [facility] ; Kevin Hendricks MD
[2018-05-30] MEDS: Lisinopril 10 MG Tablet PO SCH (08:51)
[2018-05-30] MEDS: Furosemide 40 MG Tablet PO SCH (08:51)
[2018-05-30] MEDS: Senna/Docusate Sodium 8.6/50 MG Tablet PO SCH (08:51)
[2018-05-30 10:04] VITALS: RESP 20
--- NOTE | 2018-05-30 12:26 | P.PNCA ---
Subjective Interval history: No events over night Up to the chair, no complaints Medications and Allergies Active Medications: Active Medications Acetaminophen (Tylenol) 650 mg PO Q4H PRN PRN Reason: Temp > 100.4 Al Hydroxide/Mg Hydroxide (Milk Of Magnesia Liq) 30 ml PO Q12H PRN PRN Reason: Mild Constipation Aspirin (Aspirin Chew) 81 mg PO DAILY [facility] Last Admin: 05/30/18 08:51 Dose: 81 mg Atorvastatin Calcium (Lipitor) 20 mg PO DAILY [facility] Last Admin: 05/30/18 08:51 Dose: 20 mg Bisacodyl (Dulcolax Supp) 10 mg RECTAL DAILY PRN PRN Reason: SEVERE CONSITIPATION Ciprofloxacin HCl (Cipro) 750 mg PO Q12HR [facility] Last Admin: 05/30/18 08:51 Dose: 750 mg Furosemide (Lasix) 40 mg PO DAILY [facility] Last Admin: 05/30/18 08:51 Dose: 40 mg Heparin Sodium (Porcine) (Heparin Inj) 5,000 units SQ Q8H [facility] Last Admin: 05/26/18 06:06 Dose: 5,000 units Sodium Chloride (Ns Inj) 500 mls @ 30 mls/hr IV.SIG .Q10H [facility] Last Admin: 05/27/18 19:26 Dose: Not Given Lactulose (Lactulose Liq) 30 ml PO DAILY PRN PRN Reason: SEVERE CONSITIPATION Lisinopril (Prinivil) 10 mg PO DAILY [facility] Last Admin: 05/30/18 08:51 Dose: 10 mg Ondansetron HCl (Zofran Inj) 4 mg IV.PUSH Q6H PRN PRN Reason: NAUSEA OR VOMITING Last Admin: 05/26/18 00:40 Dose: 4 mg Pantoprazole Sodium (Protonix) 40 mg PO BID [facility] Last Admin: 05/30/18 08:51 Dose: 40 mg Senna/Docusate Sodium (Nadine-Colace) 1 tab PO BID [facility] Last Admin: 05/30/18 08:51 Dose: 1 tab Sennosides (Senokot) 17.2 mg PO Q12H PRN PRN Reason: Moderate Constipation Last Admin: 05/29/18 21:41 Dose: 17.2 mg Allergies Allergy/AdvReac Type Severity Reaction Status Date / Time No Known Allergies Allergy Verified 05/24/18 16:21 Home Medications Medication Instructions Recorded Confirmed Type aspirin 81 mg PO DAILY 05/24/18 05/24/18 History atorvastatin 20 mg PO DAILY 05/24/18 05/24/18 History lisinopril 10 mg PO DAILY 05/24/18 05/24/18 History Physical Exam Vital signs: Vital Signs 05/29/18 16:00 05/29/18 19:41 05/29/18 19:59 Temperature 97.5 F L 98.3 F Pulse Rate 80 58 L Respiratory Rate 18 18 Blood Pressure 105/77 131/61 Pulse Oximetry 96 96 95 05/30/18 00:00 05/30/18 04:00 05/30/18 10:00 Temperature 98.6 F 98.1 F 97.8 F Pulse Rate 54 L 58 L 80 Respiratory Rate 18 18 20 Blood Pressure 108/79 112/72 105/77 Pulse Oximetry 94 L 96 98 Intake & Output 05/29/18 05/30/18 05/30/18 18:59 06:59 18:59 Intake Total 360 / 360 Output Total 450 / 450 Balance 360 / 360 -450 / -450 Weight 83.3 kg Intake: Oral 360 / 360 Output: Urine Amount (Catheter) 450 / 450 Indwelling Urethral Catheter 450 / 450 Narrative: GENERAL: Patient appears older than stated age. No acute distress CARDIOVASCULAR: Normal rate and regular rhythm without murmurs, gallops, or rubs. RESPIRATORY: Good respiratory efforts. Breath sounds equal and clear to auscultation bilaterally. GASTROINTESTINAL: Abdomen soft, non-tender, non-distended. Hypoactive bowel sounds MUSCULOSKELETAL: Extremities without cyanosis, or edema. NEURO: Alert & Oriented x4 to person, place, time, situation. Moves all ext x4 PSYCH: Appropriate mood and affect. - Urinary Catheter Management Indwelling Urethral Catheter Cath placed during this visit: yes Reason for continuing: Chronic Urinary Retention Insertion date: 05/24/18 Insertion time: 22:30 Results 05/29/18 06:22 05/29/18 06:22 Cardiac Enzymes 05/28/18 Range/Units 08:35 B-Natriuretic Peptide 1419 H (0-100) pg/mL Coagulation 05/28/18 Range/Units 08:35 B-Natriuretic Peptide 1419 H (0-100) pg/mL CBC 05/29/18 Range/Units 06:22 WBC 10.6 (4.0-11.0) th/mm3 RBC 4.58 (4.50-5.90) mil/mm3 Hgb 14.5 (13.0-17.0) gm/dL Hct 43.3 (39.0-51.0) % Plt Count 213 (150-450) th/mm3 Comprehensive Metabolic Panel 05/29/18 Range/Units 06:22 Sodium 134 L (136-145) meq/L Potassium 3.7 (3.5-5.1) meq/L Chloride 95 L (98-107) meq/L Carbon Dioxide 31.5 (21.0-32.0) meq/L BUN 23 H (7-18) mg/dL Creatinine 0.90 (0.60-1.30) mg/dL Calcium 8.0 L (8.5-10.1) mg/dL Intake and Output 05/29/18 05/30/18 05/30/18 22:59 06:59 14:59 Output Total 450 / 450 Balance -450 / -450 Output: Urine Amount (Catheter) 450 / 450 Indwelling Urethral Catheter 450 / 450 Other: Weight 83.3 kg Assessment and Plan - Assessment (1) Elevated troponin Code(s): R74.8 - Abnormal levels of other serum enzymes Status: Acute (2) Chronic CHF Code(s): I50.9 - Heart failure, unspecified Status: Acute (3) Acute UTI Code(s): N39.0 - Urinary tract infection, site not specified Status: Acute (4) Acute retention of urine Code(s): R33.8 - Other retention of urine Status: Acute (5) Sepsis Code(s): A41.9 - Sepsis, unspecified organism Status: Acute - Plan 1) UTI with clogged Jimenez catheter 2) Elevated lactic acid 3) Minimally elevated troponin Type 2 in nature due to lactic acidosis/sepsis as well as acute systolic heart failure due to urinary obstruction 4) Acute on chronic systolic heart failure Diuresed well Appears well compensated now as he lays in bed comfortably 5) Pre-operative risk assessment for GI procedure No signs of ACS, compensated from heart failure standpoint, hemodynamically stable May proceed as an intermediate risk 6) Not a candidate for ICD therapy as he has not been on optimal medical therapy Con't on Lisinopril BB stopped due to bradycardia, no further bradycardia 7) No further cardiovascular issues Can follow up with his health center associate in upon discharge (5) Sepsis Qualifiers: Sepsis type: sepsis due to unspecified organism Qualified Code(s): A41.9 - Sepsis, unspecified organism
--- NOTE | 2018-05-30 13:55 | P.PNIM ---
Subjective Interval history: Discharge held yesterday as the patient was too weak and deemed not safe to be discharged home. Family agreeable to SNF placement. He reports he is feeling okay today. Denies shortness of breath or chest pain at rest. Physical Exam Vital signs: Vital Signs 05/29/18 16:00 05/29/18 19:41 05/29/18 19:59 Temperature 97.5 F L 98.3 F Pulse Rate 80 58 L Respiratory Rate 18 18 Blood Pressure 105/77 131/61 Pulse Oximetry 96 96 95 05/30/18 00:00 05/30/18 04:00 05/30/18 10:00 Temperature 98.6 F 98.1 F 97.8 F Pulse Rate 54 L 58 L 80 Respiratory Rate 18 18 20 Blood Pressure 108/79 112/72 105/77 Pulse Oximetry 94 L 96 98 05/30/18 12:00 Temperature 97.9 F Pulse Rate 53 L Respiratory Rate 20 Blood Pressure Pulse Oximetry 95 Intake & Output 05/29/18 05/30/18 05/30/18 18:59 06:59 18:59 Intake Total 360 / 360 Output Total 450 / 450 Balance 360 / 360 -450 / -450 Weight 83.3 kg Intake: Oral 360 / 360 Output: Urine Amount (Catheter) 450 / 450 Indwelling Urethral Catheter 450 / 450 Narrative: GENERAL: Patient appears older than stated age. No acute distress. Sitting up in the chair CARDIOVASCULAR: Normal rate and regular rhythm without murmurs, gallops, or rubs. RESPIRATORY: Good respiratory efforts. Breath sounds equal and clear to auscultation bilaterally. GASTROINTESTINAL: Abdomen soft, non-tender, non-distended. Hypoactive bowel sounds MUSCULOSKELETAL: Extremities without cyanosis, or edema. NEURO: Alert & Oriented x4 to person, place, time, situation. Moves all ext x4 PSYCH: Appropriate mood and affect. - Urinary Catheter Management Indwelling Urethral Catheter Cath placed during this visit: yes Reason for continuing: Chronic Urinary Retention Insertion date: 05/24/18 Insertion time: 22:30 Results - Labs CBC & Chem 7: 05/29/18 06:22 05/29/18 06:22 Microbiology 05/24/18 18:15 Blood - Peripheral Aerobic Blood Culture - Final No growth in 5 days 05/24/18 18:15 Blood - Peripheral Anaerobic Blood Culture - Final No growth in 5 days 05/24/18 18:10 Blood - Peripheral Aerobic Blood Culture - Final No growth in 5 days 05/24/18 18:10 Blood - Peripheral Anaerobic Blood Culture - Final No growth in 5 days - Procedures EGD Assessment and Plan - Assessment (1) Acute systolic (congestive) heart failure Code(s): I50.21 - Acute systolic (congestive) heart failure Status: Acute (2) Acute UTI Code(s): N39.0 - Urinary tract infection, site not specified Status: Acute (3) Acute retention of urine Code(s): R33.8 - Other retention of urine Status: Acute (4) Sepsis Code(s): A41.9 - Sepsis, unspecified organism Status: Acute (5) Elevated troponin Code(s): R74.8 - Abnormal levels of other serum enzymes Status: Acute - Plan 68 Y/O male with: Sepsis secondary to UTI: - Patient has indwelling dinh that was obstructed. Catheter changed. Appreciate Urology following - ID following. Culture grew Pseudomonas that is pansensitive. Per ID recommendations, transition to Cipro 750 mg twice daily for 14 days. He is discharged on Cipro to complete the course of treatment. Acute on chronic systolic CHF/bradycardia: - Appreciate cardiology following. Patient needs to be on optimal heart failure therapy. Unfortunately he has not been compliant. - Continue aspirin, lisinopril. Coreg has been discontinued but he is still bradycardic - Lisinopril dose decreased due to hypotension. - Reported EF of 30% - Has been on Lasix 40 mg IV twice daily. Was transitioned to Lasix 40 mg p.o. daily. Dark emesis on 05/26/18: Resolved - Highly concern for GI bleeding -Appreciate GI following -EGD on 05/27/18 revealed severe esophagitis, large hiatal hernia, gastric ulceration. - Continue Protonix 40 mg twice daily. Acute kidney injury: Secondary to obstruction. Resolved since obstruction relieved by replacement of Dinh. GI prophylaxis: PPI. Patient can be discharged today to SNF. Resume prior discharge order. Discharge Planning: Needs to be more stable from a cardiac standpoint. Will consider discharge tomorrow. Will need home health. (4) Sepsis Qualifiers: Sepsis type: sepsis due to unspecified organism Qualified Code(s): A41.9 - Sepsis, unspecified organism
[2018-05-30 17:09] VITALS: BP 115/57; PULSE 61; TEMP 98.1; O2SAT 97
== END 2018-05-30 18:16 ==
LOC: NEPC 15:40 → NEDA 23:39 → NEDH 05-25 04:11 → N05 05-25 08:11
PROVIDERS: ADMIT Family Medicine; ATTEND Family Medicine
PROC: PANENDO (2018-05-27 12:48)